=== PATIENT | female | born 1950 | race Caucasian/White ===

== ENCOUNTER 2017-02-02 11:31 | Observation (INO) ==
[2017-02-02] MEDS ORDERED: methylPREDNISolone 125 MG/2 ML VIAL IVP ONE (11:41)
[2017-02-02] MEDS ORDERED: Ipratropium/Albuterol Neb 3 ML IH ONE (11:41)
--- NOTE | 2017-02-02 11:49 | Emergency Department Note ---
Disposition Clinical Impression: Acute exacerbation of chronic obstructive airways disease Disposition: Admitted As Inpatient Condition: Good Referrals: Ángel Velazquez DO [Primary Care Provider] - Forms: ED Satisfaction Letter Time of Disposition: 12:51 SOB HPI - General Chief Complaint: ED Shortness of Breath/Dyspnea Stated Complaint: Shortness of breath Source: patient Limitations: no limitations - History of Present Illness Patient presents to the emergency department for evaluation of cough and shortness of breath. She states that she was exposed to her granddaughter who had a URI recently, she states over the past 2 days she has been having cough is productive of clear to yellow sputum with increasing wheeze and shortness of breath. She states that she has mild generalized rib and chest pain with cough only. Denies hemoptysis. Denies chest pain otherwise. Denies nausea vomiting or diaphoresis. She has had some subjective fever and chills. Denies lower extremity edema or calf discomfort. Denies history of DVT or PE. Denies lower extremity injury or recent prolonged immobilization. She denies recent antibiotic use or steroid use. - Related Data Home Medications Medication Instructions Recorded Confirmed Aspirin Enteric Coated [Aspirin EC] 81 mg PO DAILY 02/18/15 02/02/17 Cholecalciferol (Vitamin D3) 1,000 unit PO DAILY 02/18/15 02/02/17 [Vitamin D] Albuterol Sulfate [Albuterol 1 puff IH QID PRN 07/16/15 02/02/17 Inhaler] Previous Rx's Medication Instructions Recorded Hydrocodone/Acetaminophen [[place] 1 tab PO Q6H PRN #4 tab 02/18/15 5-325 Tablet] Albuterol Sulfate [Albuterol 2 puff IH QID 2 Days 01/03/16 Inhaler] Allergies Allergy/AdvReac Type Severity Reaction Status Date / Time No Known Allergies Allergy Verified 01/03/16 10:03 Constitutional: Reports: fever, chills Eyes: Denies: vision change ENT ED: Reports: congestion. Denies: throat pain, dysphagia Cardiovascular: Denies: palpitations, orthopnea, edema, syncope Respiratory: Reports: cough, dyspnea, wheezes, sputum production. Denies: hemoptysis Gastrointestinal: Denies: abdominal pain, nausea, vomiting, diarrhea Genitourinary: Denies: urgency, dysuria, frequency, hematuria Musculoskeletal: Denies: back pain, neck pain, joint swelling Integumentary: Denies: rash Neurological: Denies: headache, weakness, numbness, paresthesias Psychiatric: Denies: anxiety Hematological/Lymphatic: Denies: easy bleeding, easy bruising Allergic/Immunologic: Denies: facial swelling, urticaria, itchy eyes Past Medical History - Past Medical History Source: patient Medical history: Reports: COPD Surgical history: Reports: no surgical history Psychiatric history: Reports: no psych history - Social History Smoking Status: Current every day smoker Smokeless Tobacco Status: No Alcohol use: Reports: none Drug use: Reports: none Physical Exam - General Limitations: no limitations General appearance: alert, in no apparent distress - Head Head exam: atraumatic, normocephalic, normal inspection - Eye Eye exam: Present: normal appearance, PERRL, EOMI. Absent: scleral icterus - ENT ENT exam: normal oropharynx, mucous membranes moist, TM's normal bilaterally, other (Nasal congestion without sinus tenderness to percussion or facial swelling) - Respiratory Respiratory exam: Present: wheezes, accessory muscle use, prolonged expiratory phase. Absent: respiratory distress - Cardiovascular Cardiovascular exam: Present: regular rate, normal rhythm, normal heart sounds - Abdominal Exam Abdominal exam: Present: soft, Non-Tender, normal bowel sounds. Absent: tenderness, distention, guarding, rebound, rigidity - Extremities Exam Extremities exam: Present: normal inspection, full ROM. Absent: tenderness, pedal edema, calf tenderness - Back Exam Back exam: Absent: tenderness - Neurological Exam Neurological exam: Present: alert, oriented X3 - Psychiatric Psychiatric exam: Present: normal affect, normal mood - Skin Skin exam: Present: warm, dry, intact, normal color Course Course Narrative: Time 12:50 PM: Patient subjectively feels marginally improved though still with conversational dyspnea and complaint of shortness of breath with ongoing wheezing. There is no clinical evidence concerning for DVT or PE, symptoms are not consistent with a cardiac event. Patient will be admitted to the hospitalist service for ongoing evaluation and treatment. Vital Signs Temperature 98.2 F 02/02/17 11:34 Pulse Rate 79 02/02/17 11:34 Respiratory Rate 18 02/02/17 11:34 Blood Pressure 129/67 02/02/17 11:34 O2 Sat by Pulse Oximetry 86 02/02/17 11:34 Temperature 98.2 F 09/01/17 11:34 Pulse Rate 63 02/02/17 12:26 Respiratory Rate 17 02/02/17 12:26 Blood Pressure 120/49 02/02/17 12:26 O2 Sat by Pulse Oximetry 97 02/02/17 12:26 Oxygen Delivery Oxygen Delivery Nasal Cannula Shortness of Breath/Dyspnea - Lab Data Lab results reviewed: Yes I reviewed the patient's lab results. Result diagrams: 02/02/17 12:00 02/02/17 12:00 Lab Results 02/02/17 02/02/17 02/02/17 Range/Units 12:00 12:00 12:00 WBC 6.7 (4.3-11.1) K/mcL RBC 4.77 (3.82-4.97) M/mcL Hgb 15.6 H (11.5-15.4) g/dL Hct 45.7 H (35.3-44.9) % MCV 95.8 (83.0-100.0) fL MCH 32.7 (28.0-33.3) pg MCHC 34.1 (31.6-35.5) g/dL RDW 12.1 (11.5-14.5) % Plt Count 188 (140-400) K/mcL MPV 10.9 (9.4-12.4) fL Immature Gran % 0.3 (0-4) % Seg Neutrophils % 73.9 % Lymphocytes % 14.5 % Monocytes % 9.1 % Eosinophils % 1.3 % Basophils % 0.9 % Neutrophils # 4.9 (1.6-8.9) K/mcL Lymphocytes # 1.0 (0.6-4.6) K/mcL Monocytes # 0.6 (0.0-1.3) K/mcL Eosinophils # 0.1 (0.0-0.6) K/mcL Basophils # 0.1 (0.0-0.2) K/mcL PT 11.5 (9.4-12.1) Seconds INR 1.1 APTT 34.2 (26.0-36.0) Seconds Sodium 137 (136-145) mEq/L Potassium 4.2 (3.5-4.5) mEq/L Chloride 99 (98-109) mEq/L Carbon Dioxide 26 (19-29) mEq/L BUN 10 (7-20) mg/dL Creatinine 0.75 (0.57-1.11) mg/dL Est GFR ( Amer) > 60 (> 60) Est GFR (Non-Af Amer) > 60 (> 60) BUN/Creatinine Ratio 13 (6-26) Glucose 112 H (70-99) mg/dL Calculated Osmolality 284 (280-300) Calcium 10.1 (8.6-10.8) mg/dL Total Bilirubin 0.4 (0.2-1.2) mg/dL Direct Bilirubin 0.2 (0.0-0.5) mg/dL Indirect Bilirubin 0.2 (0.0-1.2) mg/dL AST 31 (5-34) Units/L ALT 25 (0-55) Units/L Alkaline Phosphatase 81 (38-126) Units/L Troponin I (0-0.03) ng/mL B-Natriuretic Peptide (0-100) pg/mL Serum Total Protein 7.7 (6.0-8.3) g/dL Albumin 4.0 (3.5-5.0) g/dL Globulin 3.7 H (2.4-3.5) g/dL Albumin/Globulin Ratio 1.1 (1.1-2.2) 02/02/17 02/02/17 Range/Units 12:00 12:00 WBC (4.3-11.1) K/mcL RBC (3.82-4.97) M/mcL Hgb (11.5-15.4) g/dL Hct (35.3-44.9) % MCV (83.0-100.0) fL MCH (28.0-33.3) pg MCHC (31.6-35.5) g/dL RDW (11.5-14.5) % Plt Count (140-400) K/mcL MPV (9.4-12.4) fL Immature Gran % (0-4) % Seg Neutrophils % % Lymphocytes % % Monocytes % % Eosinophils % % Basophils % % Neutrophils # (1.6-8.9) K/mcL Lymphocytes # (0.6-4.6) K/mcL Monocytes # (0.0-1.3) K/mcL Eosinophils # (0.0-0.6) K/mcL Basophils # (0.0-0.2) K/mcL PT (9.4-12.1) Seconds INR APTT (26.0-36.0) Seconds Sodium (136-145) mEq/L Potassium (3.5-4.5) mEq/L Chloride (98-109) mEq/L Carbon Dioxide (19-29) mEq/L BUN (7-20) mg/dL Creatinine (0.57-1.11) mg/dL Est GFR ( Amer) (> 60) Est GFR (Non-Af Amer) (> 60) BUN/Creatinine Ratio (6-26) Glucose (70-99) mg/dL Calculated Osmolality (280-300) Calcium (8.6-10.8) mg/dL Total Bilirubin (0.2-1.2) mg/dL Direct Bilirubin (0.0-0.5) mg/dL Indirect Bilirubin (0.0-1.2) mg/dL AST (5-34) Units/L ALT (0-55) Units/L Alkaline Phosphatase (38-126) Units/L Troponin I 0.02 (0-0.03) ng/mL B-Natriuretic Peptide 94 (0-100) pg/mL Serum Total Protein (6.0-8.3) g/dL Albumin (3.5-5.0) g/dL Globulin (2.4-3.5) g/dL Albumin/Globulin Ratio (1.1-2.2) ITS Impressions Chest X-Ray 02/02/17 11:41 IMPRESSION: COPD with no acute finding or interval change. D/ / Adarsh Portillo MD / Adarsh Portillo MD Interpreting Provider: Adarsh Portillo MD - Radiology Data Radiology results reviewed: Yes I reviewed the patient's radiology results. - EKG Data EKG attestation: Yes I reviewed and interpreted this EKG. EKG shows normal: Reports: sinus rhythm (Normal sinus rhythm or rate of 67. Nonspecific ST and T wave changes.)
[2017-02-02 12:08] LABS: Basophils # 0.1 K/mcL (0.0-0.2); Basophils % 0.9 %; Eosinophils # 0.1 K/mcL (0.0-0.6); Eosinophils % 1.3 %; Hematocrit 45.7 % (35.3-44.9); Hemoglobin 15.6 g/dL (11.5-15.4); Immature Granulocytes % 0.3 % (0-4); Lymphocytes % 14.5 %; Mean Corpuscular HGB Conc 34.1 g/dL (31.6-35.5); Mean Corpuscular Hemoglobin 32.7 pg (28.0-33.3); Mean Corpuscular Volume 95.8 fL (83.0-100.0); Mean Platelet Volume 10.9 fL (9.4-12.4); Monocytes # 0.6 K/mcL (0.0-1.3); Monocytes % 9.1 %; Neutrophils # 4.9 K/mcL (1.6-8.9); Platelet Count 188 K/mcL (140-400); Red Blood Count 4.77 M/mcL (3.82-4.97); Red Cell Distribution Width 12.1 % (11.5-14.5); Segmented Neutrophils % 73.9 %
[2017-02-02 12:13] LABS: INR 1.1; Prothrombin Time 11.5 Seconds (9.4-12.1)
[2017-02-02 12:16] LABS: Activated Partial Thrombo Time 34.2 Seconds (26.0-36.0)
[2017-02-02] MEDS ORDERED: Levofloxacin 750 MG/150 ML 750 MG/150 ML BAG IVPB ONE (12:18)
[2017-02-02 12:26] LABS: Alanine Aminotransferase 25 Units/L (0-55); Albumin/Globulin Ratio 1.1 (1.1-2.2); Alkaline Phosphatase 81 Units/L (38-126); Aspartate Amino Transferase 31 Units/L (5-34); BUN/Creatinine Ratio 13 (6-26); Bilirubin,Direct 0.2 mg/dL (0.0-0.5); Bilirubin,Indirect 0.2 mg/dL (0.0-1.2); Bilirubin,Total 0.4 mg/dL (0.2-1.2); Blood Urea Nitrogen 10 mg/dL (7-20); Calcium 10.1 mg/dL (8.6-10.8); Carbon Dioxide 26 mEq/L (19-29); Chloride 99 mEq/L (98-109); Globulin 3.7 g/dL (2.4-3.5); Glucose 112 mg/dL (70-99); Osmolality,Calculated 284 (280-300); Potassium 4.2 mEq/L (3.5-4.5); Sodium 137 mEq/L (136-145); Total Protein 7.7 g/dL (6.0-8.3); eGFR For African Americans > 60 (> 60); eGFR For Non-African Americans > 60 (> 60)
[2017-02-02] MEDS ORDERED: Ketorolac 30 MG/ML VIAL IVP ONE (12:48)
[2017-02-02] MEDS ORDERED: Naloxone 0.4 MG/ML INJ IVP PRN (12:51)
--- NOTE | 2017-02-02 14:41 | Internal Med History&Physical ---
Date of Encounter: 02/02/17 Time of Encounter: 14:15 Assessment and Plan (1) Acute exacerbation of chronic obstructive airways disease Current visit: Yes Status: Acute She was given IV Levaquin in emergency room. She will continue on oral Levaquin with lactobacillus. I will also start Symbicort and continue with albuterol nebs when necessary. Room air oximetry will be checked in a.m. to see if home oxygen as needed. (2) Weight loss Current visit: Yes Status: Acute We will check TSH in a.m. and order CT of chest abdomen and pelvis since she has had approximately 15 pound weight loss unintentional. Internal Medicine - H&P: HPI Chief complaint: Dyspnea Admitted From: Home Plans for Post Hospital Care: Home History of present illness: Ms. Walls is a 66 year old female who came to emergency room stating she had increasing dyspnea with cough for the preceding 3 days. The cough was productive of clear sputum. She also complains of headache and sore throat. When she was not improving she came to emergency room and was evaluated. She was felt to have exacerbation of COPD and was admitted to [facility] floor for ongoing care needs. She has been diagnosed with COPD but does not recall when PFTs were done most recently. She has smoked since age 18 up to 1-1/2 packs per day. She does not use home oxygen. Past Med Surg Social Fam HX - Past Medical History Medical history: COPD Psychiatric history: no psych history - Past Surgical History Surgical History: no surgical history - Social History Smoking Status: Current every day smoker Packs per day: 1.5 Smokeless Tobacco Status: No Alcohol use: none Drug use: none - Family History Mother Adopted: No Living Status: Internal Medicine - H&P: Meds Aspirin Enteric Coated [Aspirin EC] 81 mg PO DAILY 02/18/15 [History] Cholecalciferol (Vitamin D3) [Vitamin D] 1,000 unit PO DAILY 02/18/15 [History] Hydrocodone/Acetaminophen [[place] 5-325 Tablet] 1 tab PO Q6H PRN #4 tab 02/18/15 [Rx] Albuterol Sulfate [Albuterol Inhaler] 1 puff IH QID PRN 07/16/15 [History] Albuterol Sulfate [Albuterol Inhaler] 2 puff IH QID 2 Days 01/03/16 [Rx] 3 Allergy/AdvReac Type Severity Reaction Status Date / Time No Known Allergies Allergy Verified 01/03/16 10:03 All Systems PM: A 10-system review of systems was performed and is negative for pertinent findings except as documented above in the HPI. Review of systems: Gen.: She states her weight has decreased from approximately 110 pounds one year ago to present weight of 94 pounds, unintentionally Cardiovascular: She denies hypertension DC heart failure angina DVT or pulmonary embolism. She states she had cerebral aneurysm intervention in 1999. She has had peripheral bypass surgery on her left leg but does not know details. Respiratory: As per history of present illness GI: She has been diagnosed with fatty liver disease. She denies other disorders of her liver gallbladder or exocrine pancreas : She denies hematuria dysuria or kidney stones Neurologic: She denies large distribution strokes or seizures Endocrine: She denies diabetes thyroid disease or hyperlipidemia Hematology/oncology: She states she had cervical cancer approximately 35 years ago and had curative hysterectomy. She denies other internal malignancies or blood disorders Psychiatric: She has feelings of depression and anxiety at times but does not take medication [place] skeletal: She has DJD but denies gout or other bone joint or muscle disorders. - Constitutional Vitals: Temp Pulse Resp BP Pulse Ox 98.1 F 69 18 144/72 94 02/02/17 13:55 02/02/17 13:55 02/02/17 13:55 02/02/17 13:55 02/02/17 13:55 Exam: Gen.: She is a well-developed well-nourished female appears in no acute distress at present time HEENT: Head is atraumatic and normocephalic. Eyes: EOMI. There is no scleral icterus. Mouth: Mucosa is moist. Neck: Supple and nontender. There is no thyromegaly or adenopathy noted. Heart: Regular without murmurs gallops or ectopics Lungs: No wheezes or crackles are heard. She has diminished breath sounds diffusely. Abdomen: Soft and nontender. No masses or guarding are noted. Extremities: There is no cyanosis edema or clubbing noted. Dorsalis pedis and posterior tibial pulses are trace palpable bilaterally. Neurologic: Mental status: She is talkative and a good historian. Cranial nerves: Smile is symmetric. Forehead wrinkles bilaterally. Tongue protrudes midline. EOMI. Motor: There is no pronator drift. Cerebellar: Finger to nose is intact bilaterally. Skin: Warm and dry Internal Med - H&P Results - Labs CBC & Chem 7: 02/02/17 12:00 02/02/17 12:00
[2017-02-02] MEDS: ALPRAZolam 0.5 MG TABLET PO PRN (16:23)
[2017-02-02] MEDS: *HR* HYDROcodone/Acet 5/325 mg TABLET PO PRN (16:23)
[2017-02-02] MEDS: Ondansetron ODT 4 MG TAB.RAPDIS SL PRN (16:25)
[2017-02-02] MEDS: Budesonide/Formoterol 160/4.5 MDI IH SCH ×2 (16:30→22:15)
[2017-02-02] MEDS: Ondansetron 4 MG/2 ML VIAL IVP PRN (16:54)
[2017-02-02] MEDS: Lactobacillus 1 EACH CAP.SPRINK PO SCH (19:37)
[2017-02-02] MEDS: Benzonatate 100 MG CAPSULE PO PRN (21:59)
[2017-02-02] MEDS: Albuterol 2.5 MG/3 ML NEBULIZER IH PRN (22:15)
[2017-02-03 08:02] LABS: Basophils % 0.1 %; Eosinophils % 0.1 %; Hematocrit 43.4 % (35.3-44.9); Hemoglobin 14.9 g/dL (11.5-15.4); Immature Granulocytes % 0.3 % (0-4); Lymphocytes # 0.6 K/mcL (0.6-4.6); Lymphocytes % 8.6 %; Mean Corpuscular HGB Conc 34.3 g/dL (31.6-35.5); Mean Corpuscular Hemoglobin 32.7 pg (28.0-33.3); Mean Corpuscular Volume 95.4 fL (83.0-100.0); Mean Platelet Volume 10.9 fL (9.4-12.4); Monocytes # 0.7 K/mcL (0.0-1.3); Monocytes % 9.1 %; Platelet Count 177 K/mcL (140-400); Red Blood Count 4.55 M/mcL (3.82-4.97); Red Cell Distribution Width 11.9 % (11.5-14.5); Segmented Neutrophils % 81.8 %
[2017-02-03 08:10] LABS: BUN/Creatinine Ratio 21 (6-26); Blood Urea Nitrogen 15 mg/dL (7-20); Calcium 9.7 mg/dL (8.6-10.8); Carbon Dioxide 24 mEq/L (19-29); Glucose 115 mg/dL (70-99); eGFR For African Americans > 60 (> 60); eGFR For Non-African Americans > 60 (> 60)
[2017-02-03] MEDS: Albuterol 2.5 MG/3 ML NEBULIZER IH PRN (08:38)
[2017-02-03] MEDS: Budesonide/Formoterol 160/4.5 MDI IH SCH ×3 (08:43→22:35)
[2017-02-03] MEDS: Lactobacillus 1 EACH CAP.SPRINK PO SCH ×2 (08:56→20:27)
[2017-02-03] MEDS: *HR* HYDROcodone/Acet 5/325 mg TABLET PO PRN ×3 (08:56→18:38)
[2017-02-03] MEDS: levoFLOXacin 250 MG TABLET PO SCH (08:56)
[2017-02-03] MEDS: ALPRAZolam 0.5 MG TABLET PO PRN ×3 (08:57→20:27)
[2017-02-03] MEDS: Aspirin 81 MG TAB.CHEW PO SCH (08:57)
[2017-02-03] MEDS: Benzonatate 100 MG CAPSULE PO PRN ×2 (08:57→18:38)
[2017-02-03] MEDS: Nicotine 21 MG PATCH.TD24 TD SCH (08:59)
[2017-02-03 10:04] LABS: Chloride 101 mEq/L (98-109); Osmolality,Calculated 282 (280-300); Potassium 4.8 mEq/L (3.5-4.5); Sodium 135 mEq/L (136-145)
--- NOTE | 2017-02-03 15:54 | Internal Med Progress Note ---
Date of Encounter: 02/03/17 Time of Encounter: 15:50 - Assessment and plan (1) COPD (chronic obstructive pulmonary disease) Current Visit: No Status: Chronic Assessment and plan: Only a little less short of breath continue Symbicort neb treatments oxygen and follow-up labs Qualifiers: COPD type: unspecified COPD Qualified Code(s): J44.9 - Chronic obstructive pulmonary disease, unspecified (2) Bronchitis, acute Current Visit: Yes Status: Acute Assessment and plan: We will continue the Levaquin follow up a CBC with differential in the morning Qualifiers: Bronchitis organism: unspecified organism Qualified Code(s): J20.9 - Acute bronchitis, unspecified (3) Hypothyroidism Current Visit: Yes Status: Acute Assessment and plan: We will follow-up at thyroid cascade. She may need to go to a specialist for further workup Qualifiers: Hypothyroidism type: unspecified Qualified Code(s): E03.9 - Hypothyroidism , unspecified (4) Weight loss Current Visit: Yes Status: Acute Assessment and plan: TSH was low to be one reason CT scan did not show cancer. She does not eat much she is not sure how many calories she takes. Bursa and usually needs about 1200 kamlesh to maintain body weight (5) Hyponatremia Current Visit: Yes Status: Acute Assessment and plan: could be related to dilution with IV fluids will follow up BMP (6) Hyperkalemia Current Visit: Yes Status: Acute Assessment and plan: Can be related to dilution with IV fluids AND BMP in morning (7) IFG (impaired fasting glucose) Current Visit: Yes Status: Acute Assessment and plan: I related to the steroid effect will get a hemoglobin A1c (8) Sigmoid diverticulosis Current Visit: Yes Status: Chronic Assessment and plan: With diverticulosis is and if she can avoid constipation would help avoid diverticulitis or inflammation and infection of the area - Time Spent With Patient 25 - 35 minutes - Subjective Interval history: 66-year-old female presented to emergency room with shortness of breath and cough she was admitted to Dr. Wasserman service today methyl prednisone and Levaquin IV. Dr. Rocha switched her to Symbicort continue neb treatments changed to Levaquin 250 mg by mouth daily. He ordered a TSH because of her weight loss which showed decreased TSH level which is consistent with hyperthyroidism reorder CT scan because the weight loss of the abdomen and pelvis which showed moderate centrilobar emphysema, mild bronchial wall thickening of the right middle lobe, right lower lobe, and left lower lobe. Evidence of poor granulomatous disease with calcifications of the mediastinal lymph node. Also showed sigmoid diverticulitis. Her blood sugar remains high but she is on steroid, her sodium came down, her potassium went up slightly. She feels just slightly better today but is still on oxygen. Does not wear oxygen at home. She reports no chest pain questions answered concerns addressed lab results and CT results were discussed with patient - Constitutional Vitals: Temp Pulse Resp BP Pulse Ox 98.1 F 52 16 100/60 97 02/03/17 14:30 02/03/17 14:30 02/03/17 14:30 02/03/17 14:30 02/03/17 14:30 Exam: General: Alert and oriented, no acute distress Lungs: Clear to auscultation bilaterally without wheezing or crackles Heart: Regular rate and rythms without murmer or rubs Abdomen: Soft, nontender, Extremities: no edema, redness Internal Medicine: Result - Labs CBC & Chem 7: 02/03/17 07:34 02/03/17 07:34 Labs: Short CBC 02/03/17 Range/Units 07:34 WBC 7.4 (4.3-11.1) K/mcL Hgb 14.9 (11.5-15.4) g/dL Hct 43.4 (35.3-44.9) % Plt Count 177 (140-400) K/mcL Neutrophils # 6.0 (1.6-8.9) K/mcL BMP 02/03/17 07:34 Sodium 135 L Potassium 4.8 H Chloride 101 Carbon Dioxide 24 BUN 15 Creatinine 0.73 Glucose 115 H Calcium 9.7 Cardiac Enzymes 02/02/17 02/03/17 Range/Units 18:02 00:01 Troponin I 0.00 0.00 (0-0.03) ng/mL - ABG Interpretation ABG results: PT/INR, D-dimer PT 11.5 Seconds (9.4-12.1) 02/02/17 12:00 - Impressions Impressions Chest CT 02/02/17 14:34 IMPRESSION: 1. No acute finding in the abdomen or pelvis. 2. Moderate centrilobular emphysema. 3. Mild bronchial wall thickening of the right middle lobe, right lower lobe, and left lower lobe. Please correlate with clinical symptoms of bronchitis. 4. Evidence of prior granulomatous disease with calcified mediastinal lymph nodes, hilar lymph nodes, and calcified granulomas in the spleen. 5. Sigmoid diverticulosis. No evidence of diverticulitis. D/ / 02/02/2017 15:49:54 Marvin Olmedo MD / george Interpreting Provider: Marvin Olmedo MD Abdomen/Pelvis CT 02/02/17 14:39 IMPRESSION: 1. No acute finding in the abdomen or pelvis. 2. Moderate centrilobular emphysema. 3. Mild bronchial wall thickening of the right middle lobe, right lower lobe, and left lower lobe. Please correlate with clinical symptoms of bronchitis. 4. Evidence of prior granulomatous disease with calcified mediastinal lymph nodes, hilar lymph nodes, and calcified granulomas in the spleen. 5. Sigmoid diverticulosis. No evidence of diverticulitis. D/ : / 02/02/2017 15:49:54 Marvin Olmedo MD / george Interpreting Provider: Marvin Olmedo MD Consult Discharge Plan - Plan Referrals: Ángel Velazquez DO [Primary Care Provider] - 1 week
[2017-02-03] MEDS: Ondansetron 4 MG/2 ML VIAL IVP PRN (18:47)
[2017-02-04] MEDS: *HR* HYDROcodone/Acet 5/325 mg TABLET PO PRN ×2 (05:43→11:41)
[2017-02-04] MEDS: Ondansetron ODT 4 MG TAB.RAPDIS SL PRN ×2 (05:43→21:24)
[2017-02-04] MEDS: Albuterol 2.5 MG/3 ML NEBULIZER IH PRN (05:45)
[2017-02-04] MEDS: Benzonatate 100 MG CAPSULE PO PRN ×2 (05:48→21:16)
[2017-02-04] MEDS: Ondansetron 4 MG/2 ML VIAL IVP PRN ×3 (05:48→21:28)
[2017-02-04 06:14] LABS: Basophils # 0.1 K/mcL (0.0-0.2); Basophils % 0.7 %; Eosinophils # 0.3 K/mcL (0.0-0.6); Eosinophils % 4.1 %; Hematocrit 41.8 % (35.3-44.9); Immature Granulocytes % 0.3 % (0-4); Lymphocytes # 1.8 K/mcL (0.6-4.6); Lymphocytes % 26.3 %; Mean Corpuscular HGB Conc 33.5 g/dL (31.6-35.5); Mean Corpuscular Hemoglobin 32.6 pg (28.0-33.3); Mean Corpuscular Volume 97.4 fL (83.0-100.0); Mean Platelet Volume 11.6 fL (9.4-12.4); Monocytes # 0.5 K/mcL (0.0-1.3); Monocytes % 7.5 %; Neutrophils # 4.2 K/mcL (1.6-8.9); Platelet Count 173 K/mcL (140-400); Red Blood Count 4.29 M/mcL (3.82-4.97); Red Cell Distribution Width 12.3 % (11.5-14.5); Segmented Neutrophils % 61.1 %
[2017-02-04 06:28] LABS: BUN/Creatinine Ratio 22 (6-26); Blood Urea Nitrogen 16 mg/dL (7-20); Calcium 9.3 mg/dL (8.6-10.8); Carbon Dioxide 27 mEq/L (19-29); Chloride 103 mEq/L (98-109); Glucose 83 mg/dL (70-99); Osmolality,Calculated 288 (280-300); Potassium 4.4 mEq/L (3.5-4.5); Sodium 139 mEq/L (136-145); eGFR For African Americans > 60 (> 60); eGFR For Non-African Americans > 60 (> 60)
[2017-02-04 06:52] LABS: Thyroid Stimulating Hormone 1.174 mcIU/mL (0.350-4.840)
[2017-02-04] MEDS: levoFLOXacin 250 MG TABLET PO SCH (09:08)
[2017-02-04] MEDS: Aspirin 81 MG TAB.CHEW PO SCH (09:08)
[2017-02-04] MEDS: Lactobacillus 1 EACH CAP.SPRINK PO SCH ×2 (09:09→21:16)
[2017-02-04] MEDS: ALPRAZolam 0.5 MG TABLET PO PRN ×2 (09:09→18:03)
[2017-02-04] MEDS: Nicotine 21 MG PATCH.TD24 TD SCH (09:09)
[2017-02-04] MEDS: Budesonide/Formoterol 160/4.5 MDI IH SCH ×2 (09:14→21:12)
--- NOTE | 2017-02-04 14:35 | Internal Med Progress Note ---
Date of Encounter: 02/04/17 Time of Encounter: 14:25 - Assessment and plan (1) Acute exacerbation of chronic obstructive airways disease Current Visit: Yes Status: Acute Assessment and plan: February 04. Continue Levaquin, lactobacillus, Symbicort and neb treatments when necessary. Will add Robitussin-DM (2) Weight loss Current Visit: Yes Status: Acute Assessment and plan: TSH was low to be one reason CT scan did not show cancer. She does not eat much she is not sure how many calories she takes. Bursa and usually needs about 1200 kamlesh to maintain body weight February 04. CT scan showed no evidence of malignancy. TSH has returned normal on recheck today. - Subjective Interval history: February 04. She complains of a headache. She does not feel she has improved significantly in her breathing. - Constitutional Vitals: Temp Pulse Resp BP Pulse Ox 99.3 F 61 21 85/47 92 02/04/17 10:45 02/04/17 10:45 02/04/17 10:45 02/04/17 10:45 02/04/17 12:51 Exam: She is resting comfortably in bed. Lungs show diminished breath sounds but no inspiratory crackles or expiratory wheezing. Reviewed her medications and lab results. Internal Medicine: Result - Labs CBC & Chem 7: 02/04/17 05:10 02/04/17 05:10 Labs: Short CBC 02/04/17 Range/Units 05:10 WBC 6.8 (4.3-11.1) K/mcL Hgb 14.0 (11.5-15.4) g/dL Hct 41.8 (35.3-44.9) % Plt Count 173 (140-400) K/mcL Neutrophils # 4.2 (1.6-8.9) K/mcL BMP 02/04/17 05:10 Sodium 139 Potassium 4.4 Chloride 103 Carbon Dioxide 27 BUN 16 Creatinine 0.73 Glucose 83 Calcium 9.3 - ABG Interpretation ABG results: PT/INR, D-dimer PT 11.5 Seconds (9.4-12.1) 02/02/17 12:00 - Impressions Impressions Chest CT 02/02/17 14:34 IMPRESSION: 1. No acute finding in the abdomen or pelvis. 2. Moderate centrilobular emphysema. 3. Mild bronchial wall thickening of the right middle lobe, right lower lobe, and left lower lobe. Please correlate with clinical symptoms of bronchitis. 4. Evidence of prior granulomatous disease with calcified mediastinal lymph nodes, hilar lymph nodes, and calcified granulomas in the spleen. 5. Sigmoid diverticulosis. No evidence of diverticulitis. D/ / 02/02/2017 15:49:54 Marvin Olmedo MD / george Interpreting Provider: Marvin Olmedo MD Abdomen/Pelvis CT 02/02/17 14:39 IMPRESSION: 1. No acute finding in the abdomen or pelvis. 2. Moderate centrilobular emphysema. 3. Mild bronchial wall thickening of the right middle lobe, right lower lobe, and left lower lobe. Please correlate with clinical symptoms of bronchitis. 4. Evidence of prior granulomatous disease with calcified mediastinal lymph nodes, hilar lymph nodes, and calcified granulomas in the spleen. 5. Sigmoid diverticulosis. No evidence of diverticulitis. D/ / 02/02/2017 15:49:54 Marvin Olmedo MD / george Interpreting Provider: Marvin Olmedo MD Consult Discharge Plan - Plan Referrals: Ángel Velazquez DO [Primary Care Provider] - 1 week
[2017-02-04] MEDS: *HR* OxyCODONE/APAP 5/325 TABLET PO PRN ×2 (15:22→21:16)
[2017-02-04 17:20] LABS: Hemoglobin A1C 5.7 %
[2017-02-05 06:22] VITALS: BP 100/55
[2017-02-05] MEDS: *HR* OxyCODONE/APAP 5/325 TABLET PO PRN ×2 (06:54→11:22)
[2017-02-05] MEDS: Ondansetron 4 MG/2 ML VIAL IVP PRN ×2 (06:55→13:20)
--- NOTE | 2017-02-05 10:08 | Discharge Summary ---
Date of Encounter: 02/05/17 Time of Encounter: 09:55 - Discharge Diagnosis (1) Acute exacerbation of chronic obstructive airways disease Priority: Primary Status: Acute (2) Weight loss Priority: Secondary Status: Acute - Discharge Medications Prescriptions: Budesonide/Formoterol 160/4.5 [Symbicort 160/4.5] 2 puff IH BIDR #1 hfa.aer.ad Lactobacillus [Culturelle] 1 each PO BID #6 cap.sprink levoFLOXacin [Levaquin] 500 mg PO DAILY #3 tablet Home Medications: Aspirin Enteric Coated [Aspirin EC] 81 mg PO DAILY 02/18/15 [History] Cholecalciferol (Vitamin D3) [Vitamin D] 1,000 unit PO DAILY 02/18/15 [History] Hydrocodone/Acetaminophen [[place] 5-325 Tablet] 1 tab PO Q6H PRN #4 tab 02/18/15 [Rx] Albuterol Sulfate [Albuterol Inhaler] 1 puff IH QID PRN 07/16/15 [History] Albuterol Sulfate [Albuterol Inhaler] 2 puff IH QID 2 Days 01/03/16 [Rx] Budesonide/Formoterol 160/4.5 [Symbicort 160/4.5] 2 puff IH BIDR #1 hfa.aer.ad 02/05/17 [Rx] Lactobacillus [Culturelle] 1 each PO BID #6 cap.sprink 02/05/17 [Rx] levoFLOXacin [Levaquin] 500 mg PO DAILY #3 tablet 02/05/17 [Rx] Allergies/Adverse Reactions: 3 Allergy/AdvReac Type Severity Reaction Status Date / Time No Known Allergies Allergy Verified 01/03/16 10:03 Procedures/tests Complete & Pending: Procedures Performed prior 72 hours Category Date Time Status CT abd pelvis wo no iv no oral [CT] Routine Cat Scan 02/02/17 14:[address] chest wo con [CT] Routine Cat Scan 02/02/17 14:34 Completed Date of admission: 02/02/17 13:17 Primary care physician: Ángel Velazquez DO - Patient Status Disposition: Home, Self-Care Condition: Good Overall status at discharge: patient is progressing back to baseline - Discharge Instructions Follow Up With: Ángel Velazquez DO [Primary Care Provider] - 1 week - Diet and Activity Activity: resume usual activities as tolerated Diet: advance to your usual diet Hospital course: Ms. Walls is a 66 year old female who came to emergency room stating she had increasing dyspnea with cough for the preceding 3 days. The cough was productive of clear sputum. She also complains of headache and sore throat. When she was not improving she came to emergency room and was evaluated. She was felt to have exacerbation of COPD and was admitted to [facility] floor for ongoing care needs. Initial orders were written by the emergency room physician. I saw her on February 02 and performed the history and physical. She was started on Levaquin and lactobacillus. I added Symbicort and continued albuterol nebs when necessary. Her dyspnea gradually improved. She had hypoxemia on room air on the day of discharge with oxygen saturation of 84% at rest. She will be prescribed oxygen at 2 L/m by nasal cannula 25/12 with portable gas and concentrator for COPD with hypoxemia. TSH and CT of chest abdomen pelvis were ordered to further evaluate her reported weight loss. TSH returned slightly suppressed at 0.257 on February 03. Repeat check the following day returned normal at 1.174. CT scans showed moderate centrilobular emphysema with bronchial wall thickening of the right middle lobe and right lower lobe and left lower lobe consistent with bronchitis. I encouraged her strongly to discontinue smoking. Hemoglobin A1c returned satisfactory at 5.7%. On February 05 I felt she was stable for discharge home. She will follow with her PCP Dr. Velazquez within 1 week. I strongly encouraged her to discontinue smoking and wear oxygen as prescribed. - Time Spent with Patient Total time spent providing and/or coordinating discharge services: - Constitutional Vitals: Temp Pulse Resp BP Pulse Ox 97.8 F 77 16 100/55 95 02/05/17 06:19 02/05/17 06:19 02/05/17 06:19 02/05/17 06:19 02/05/17 06:19
[2017-02-05] MEDS: Budesonide/Formoterol 160/4.5 MDI IH SCH (10:12)
[2017-02-05] MEDS: Nicotine 21 MG PATCH.TD24 TD SCH (10:18)
[2017-02-05] MEDS: Lactobacillus 1 EACH CAP.SPRINK PO SCH (10:18)
[2017-02-05] MEDS: levoFLOXacin 250 MG TABLET PO SCH (10:18)
[2017-02-05] MEDS: Aspirin 81 MG TAB.CHEW PO SCH (10:18)
[2017-02-05] MEDS: ALPRAZolam 0.5 MG TABLET PO PRN (13:21)
--- NOTE | 2017-02-06 07:56 | Electrocardiograph Report ---
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
== END 2017-02-05 16:00 | disposition home or self-care (01) ==
LOC: EMEROOPIK 11:31 → INPPIK 11:31
PROVIDERS: ADMIT Internal Medicine; ATTEND Internal Medicine

== ENCOUNTER 2017-06-02 12:08 | Observation (INO) ==
[2017-06-02] MEDS ORDERED: cefTRIAXone 1,000 MG in Water for inj. (sterile) 20 ML 10 ML IVP ONE (12:09)
[2017-06-02] MEDS ORDERED: Ipratropium/Albuterol Neb 3 ML IH ONE (12:09)
[2017-06-02] MEDS ORDERED: 0.9 % Sodium Chloride 1,000 ML IVC ONE (12:09)
[2017-06-02] MEDS ORDERED: Azithromycin 500 MG in D5% in Water 250 ML IVPB ONE (12:09)
[2017-06-02] MEDS ORDERED: methylPREDNISolone 125 MG/2 ML VIAL IVP ONE (12:09)
--- NOTE | 2017-06-02 12:14 | Emergency Department Note ---
Disposition Clinical Impression: Acute exacerbation of chronic obstructive airways disease Disposition: Admitted As Inpatient Condition: Fair Referrals: Ángel Velazquez DO [Primary Care Provider] - Forms: ED Satisfaction Letter SOB HPI - General Chief Complaint: ED Shortness of Breath/Dyspnea Stated Complaint: I can't breathe Time Seen by Provider: 06/02/17 12:09 Source: patient, family Mode of arrival: private vehicle Limitations: physical limitation Nursing Notes Reviewed: Yes Vital Signs Reviewed: Yes - History of Present Illness Patient presents stating it feels like she has "the flu". She has been feeling poorly for 3 days with increased shortness of breath and a cough productive of green phlegm. She had generalized malaise, fevers and chills. She states she has a headache and chest pain with coughing but no other headache or chest pain. She has diffuse muscle and joint aches. She reports nausea without vomiting. She denies abdominal pain or diarrhea. She denies any ill exposures , change her medicines and recent antibiotic or foodborne illness or concerns. She has smoked it has a history of COPD. She states she has had similar symptoms in the past but not quite this bad. She is on 2-1/2 L of oxygen at home but arrives without oxygen and is saturating at 79%. Pt Subjective Complaint: shortness of breath, cough Onset (ago): day(s) (3) Context: recent illness Severity: moderate, severe Consistency/Duration: gradually worsening Improves with: oxygen, rest Worsens with: exertion, coughing Known history of: COPD Associated symptoms: Reports: fever, cough, wheezing, sputum production. Denies : chest pain, pain with inspiration, orthopnea, lower extremity pain, palpitations, hemoptysis, diaphoresis, nausea/vomiting, syncope, abdominal pain , rash Treatment prior to arrival: oxygen, bronchodilator Cough present: Yes Cough Description: Voluntary, Productive, Moist Cough Frequency: Intermittent Sputum production: Yes Sputum Amount: Moderate Sputum Color: Green - Related Data Home oxygen amount: 2 liters Home Medications Medication Instructions Recorded Confirmed Aspirin Enteric Coated [Aspirin EC] 81 mg PO DAILY 02/18/15 06/02/17 Cholecalciferol (Vitamin D3) 1,000 unit PO DAILY 02/18/15 06/02/17 [Vitamin D] Albuterol Sulfate [Albuterol 1 puff IH QID PRN 07/16/15 06/02/17 Inhaler] Previous Rx's Medication Instructions Recorded Hydrocodone/Acetaminophen [[place] 1 tab PO Q6H PRN #4 tab 02/18/15 5-325 Tablet] Albuterol Sulfate [Albuterol 2 puff IH QID 2 Days inhaler 01/03/16 Inhaler] Allergies Allergy/AdvReac Type Severity Reaction Status Date / Time No Known Allergies Allergy Verified 01/03/16 10:03 All systems ED: reviewed and negative except as stated. Past Medical History - Past Medical History Attestation: Yes The following information was validated with the patient. Source: patient, old records reviewed, obtained from family, nursing notes reviewed Medical history: Reports: COPD Surgical history: Reports: no surgical history Psychiatric history: Reports: no psych history - Social History Smoking Status: Current every day smoker Smokeless Tobacco Status: No Alcohol use: Reports: none Drug use: Reports: none Physical Exam - General Limitations: physical limitation General appearance: alert, in distress - Head Head exam: atraumatic, normocephalic, normal inspection - Eye Eye exam: Present: normal appearance, PERRL, EOMI. Absent: conjunctival injection - ENT ENT exam: normal exam, normal oropharynx, mucous membranes moist - Neck Neck exam: Present: normal inspection, full ROM, trachea midline - Chest Chest inspection: Present: normal inspection, symmetric chest wall rise. Absent : tenderness - Respiratory Respiratory exam: Present: respiratory distress, wheezes, prolonged expiratory phase. Absent: stridor, accessory muscle use - Cardiovascular Cardiovascular exam: Present: regular rate, normal rhythm, normal heart sounds. Absent: tachycardia - Abdominal Exam Abdominal exam: Present: soft, Non-Tender, normal bowel sounds. Absent: tenderness, distention, guarding, rebound, rigidity - Extremities Exam Extremities exam: Present: normal inspection, full ROM, normal capillary refill. Absent: tenderness, pedal edema, calf tenderness - Expanded Lower Extremity Exam Neurovascular/Tendon exam: Present: normal capillary refill. Absent: motor deficit, sensory deficit, tendon deficit Gait: not tested/not observed - Back Exam Back exam: Present: normal inspection, full ROM. Absent: tenderness, vertebral tenderness - Neurological Exam Neurological exam: Present: alert, oriented X3 - Psychiatric Psychiatric exam: Present: normal affect, normal mood - Skin Skin exam: Present: warm, dry, intact, pallor. Absent: cyanosis, diaphoresis Course Course Narrative: Care is discussed with the patient, family and Dr. Wasserman. She is brought in for continued respiratory treatment for COPD exacerbation. Verbal orders are obtained for observation. Vital Signs Temperature 98.5 F 06/02/17 12:11 Pulse Rate 93 06/02/17 12:11 Respiratory Rate 24 06/02/17 12:11 Blood Pressure 144/32 06/02/17 12:11 O2 Sat by Pulse Oximetry 79 06/02/17 12:11 Temperature 98.5 F 06/02/17 12:11 Pulse Rate 80 06/02/17 12:59 Respiratory Rate 22 06/02/17 12:59 Blood Pressure 96/57 06/02/17 12:59 O2 Sat by Pulse Oximetry 95 06/02/17 12:59 Oxygen Delivery Oxygen Delivery Nasal Cannula Shortness of Breath/Dyspnea - Differential Diagnosis Likely: acute exacerbation of chronic obstructive airways disease, congestive heart failure, pneumonia, asthma with exacerbation - Lab Data Lab results reviewed: Yes I reviewed the patient's lab results. Result diagrams: 06/02/17 12:30 06/02/17 12:30 Lab Results 06/02/17 06/02/17 06/02/17 Range/Units 12:30 12:30 12:30 WBC 7.9 (4.3-11.1) K/mcL RBC 4.29 (3.82-4.97) M/mcL Hgb 14.0 (11.5-15.4) g/dL Hct 40.9 (35.3-44.9) % MCV 95.3 (83.0-100.0) fL MCH 32.6 (28.0-33.3) pg MCHC 34.2 (31.6-35.5) g/dL RDW 11.9 (11.5-14.5) % Plt Count 206 (140-400) K/mcL MPV 10.7 (9.4-12.4) fL Seg Neutrophils % 70.0 % Band Neutrophils % 8.0 H (0-4) % Lymphocytes % 4.0 % Monocytes % 14.0 % Eosinophils % 4.0 % Neutrophils # 6.2 (1.6-8.9) K/mcL Lymphocytes # 0.3 L (0.6-4.6) K/mcL Monocytes # 1.1 (0.0-1.3) K/mcL Eosinophils # 0.3 (0.0-0.6) K/mcL Toxic Vacuolation Present A (Not Present) Platelet Estimate Normal (Normal) PT 12.7 H (9.4-12.1) Seconds INR 1.2 APTT 28.9 (26.0-36.0) Seconds Sample Site ABG pH (7.32-7.45) pH Units ABG pCO2 (35-45) mmHg ABG pO2 (85-104) mmHg ABG HCO3 (21-27) mEq/L ABG Total CO2 (20-26) mEq/L ABG O2 Saturation (95-98) % ABG Base Excess (-2 to 3) mEq/L Jack Test O2 Delivery Device Inspired O2 (1-15=lpm [id number]=%) Sodium 135 L (136-145) mEq/L Potassium 4.3 (3.5-4.5) mEq/L Chloride 97 L (98-109) mEq/L Carbon Dioxide 25 (19-29) mEq/L BUN 18 (7-20) mg/dL Creatinine 0.81 (0.57-1.11) mg/dL Est GFR ( Amer) > 60 (> 60) Est GFR (Non-Af Amer) > 60 (> 60) BUN/Creatinine Ratio 22 (6-26) Glucose 126 H (70-99) mg/dL Calculated Osmolality 283 (280-300) Lactic Acid (0.5-2.2) mmol/L Calcium 10.1 (8.6-10.8) mg/dL Troponin I (0-0.03) ng/mL B-Natriuretic Peptide (0-100) pg/mL 06/02/17 06/02/17 06/02/17 Range/Units 12:30 12:30 12:30 WBC (4.3-11.1) K/mcL RBC (3.82-4.97) M/mcL Hgb (11.5-15.4) g/dL Hct (35.3-44.9) % MCV (83.0-100.0) fL MCH (28.0-33.3) pg MCHC (31.6-35.5) g/dL RDW (11.5-14.5) % Plt Count (140-400) K/mcL MPV (9.4-12.4) fL Seg Neutrophils % % Band Neutrophils % (0-4) % Lymphocytes % % Monocytes % % Eosinophils % % Neutrophils # (1.6-8.9) K/mcL Lymphocytes # (0.6-4.6) K/mcL Monocytes # (0.0-1.3) K/mcL Eosinophils # (0.0-0.6) K/mcL Toxic Vacuolation (Not Present) Platelet Estimate (Normal) PT (9.4-12.1) Seconds INR APTT (26.0-36.0) Seconds Sample Site ABG pH (7.32-7.45) pH Units ABG pCO2 (35-45) mmHg ABG pO2 (85-104) mmHg ABG HCO3 (21-27) mEq/L ABG Total CO2 (20-26) mEq/L ABG O2 Saturation (95-98) % ABG Base Excess (-2 to 3) mEq/L Jack Test O2 Delivery Device Inspired O2 (1-15=lpm [id number]=%) Sodium (136-145) mEq/L Potassium (3.5-4.5) mEq/L Chloride (98-109) mEq/L Carbon Dioxide (19-29) mEq/L BUN (7-20) mg/dL Creatinine (0.57-1.11) mg/dL Est GFR ( Amer) (> 60) Est GFR (Non-Af Amer) (> 60) BUN/Creatinine Ratio (6-26) Glucose (70-99) mg/dL Calculated Osmolality (280-300) Lactic Acid 1.9 (0.5-2.2) mmol/L Calcium (8.6-10.8) mg/dL Troponin I 0.01 (0-0.03) ng/mL B-Natriuretic Peptide 210 H (0-100) pg/mL 06/02/17 Range/Units 12:44 WBC (4.3-11.1) K/mcL RBC (3.82-4.97) M/mcL Hgb (11.5-15.4) g/dL Hct (35.3-44.9) % MCV (83.0-100.0) fL MCH (28.0-33.3) pg MCHC (31.6-35.5) g/dL RDW (11.5-14.5) % Plt Count (140-400) K/mcL MPV (9.4-12.4) fL Seg Neutrophils % % Band Neutrophils % (0-4) % Lymphocytes % % Monocytes % % Eosinophils % % Neutrophils # (1.6-8.9) K/mcL Lymphocytes # (0.6-4.6) K/mcL Monocytes # (0.0-1.3) K/mcL Eosinophils # (0.0-0.6) K/mcL Toxic Vacuolation (Not Present) Platelet Estimate (Normal) PT (9.4-12.1) Seconds INR APTT (26.0-36.0) Seconds Sample Site R Brach ABG pH 7.41 (7.32-7.45) pH Units ABG pCO2 43 (35-45) mmHg ABG pO2 59 L (85-104) mmHg ABG HCO3 27 (21-27) mEq/L ABG Total CO2 28 H (20-26) mEq/L ABG O2 Saturation 90 L (95-98) % ABG Base Excess 2 (-2 to 3) mEq/L Jack Test N/A O2 Delivery Device Cannula Inspired O2 3.0 (1-15=lpm [id number]=%) Sodium (136-145) mEq/L Potassium (3.5-4.5) mEq/L Chloride (98-109) mEq/L Carbon Dioxide (19-29) mEq/L BUN (7-20) mg/dL Creatinine (0.57-1.11) mg/dL Est GFR ( Amer) (> 60) Est GFR (Non-Af Amer) (> 60) BUN/Creatinine Ratio (6-26) Glucose (70-99) mg/dL Calculated Osmolality (280-300) Lactic Acid (0.5-2.2) mmol/L Calcium (8.6-10.8) mg/dL Troponin I (0-0.03) ng/mL B-Natriuretic Peptide (0-100) pg/mL - Radiology Data Radiology results reviewed: Yes I reviewed the patient's radiology results. Single view chest x-ray is performed. This does not demonstrate evidence for infiltrate, effusion, pneumothorax, foreign body or heart failure. The cardiac silhouette is normal. Patient is hyperinflated consistent with emphysema/COPD. I do not see abnormality to the osseous structures of the chest. This is on my interpretation. Impressions Chest X-Ray 06/02/17 12:09 IMPRESSION: No acute process. D/ / Billy Huynh MD / Billy Huynh MD Interpreting Provider: Billy Huynh MD - EKG Data EKG attestation: Yes I reviewed and interpreted this EKG. EKG shows normal: Reports: sinus rhythm, axis, intervals, QRS complexes, ST-T waves Rate: Reports: normal (83) P waves: Reports: LAE Interpretation: Reports: no acute changes
[2017-06-02 12:39] LABS: Hematocrit 40.9 % (35.3-44.9); Mean Corpuscular HGB Conc 34.2 g/dL (31.6-35.5); Mean Corpuscular Hemoglobin 32.6 pg (28.0-33.3); Mean Corpuscular Volume 95.3 fL (83.0-100.0); Mean Platelet Volume 10.7 fL (9.4-12.4); Platelet Count 206 K/mcL (140-400); Red Blood Count 4.29 M/mcL (3.82-4.97); Red Cell Distribution Width 11.9 % (11.5-14.5)
[2017-06-02 12:47] LABS: ABG Base Excess 2 mEq/L (-2 to 3); ABG HCO3 27 mEq/L (21-27); ABG Oxygen Saturation 90 % (95-98); ABG PCO2 43 mmHg (35-45); ABG PH 7.41 pH Units (7.32-7.45); ABG PO2 59 mmHg (85-104); ABG TCO2 28 mEq/L (20-26)
[2017-06-02 12:49] LABS: INR 1.2; Prothrombin Time 12.7 Seconds (9.4-12.1)
[2017-06-02 12:51] LABS: Activated Partial Thrombo Time 28.9 Seconds (26.0-36.0)
[2017-06-02 12:58] LABS: BUN/Creatinine Ratio 22 (6-26); Blood Urea Nitrogen 18 mg/dL (7-20); Calcium 10.1 mg/dL (8.6-10.8); Carbon Dioxide 25 mEq/L (19-29); Chloride 97 mEq/L (98-109); Glucose 126 mg/dL (70-99); Osmolality,Calculated 283 (280-300); Potassium 4.3 mEq/L (3.5-4.5); Sodium 135 mEq/L (136-145); eGFR For African Americans > 60 (> 60); eGFR For Non-African Americans > 60 (> 60)
[2017-06-02 13:08] LABS: Eosinophils # 0.3 K/mcL (0.0-0.6); Lymphocytes # 0.3 K/mcL (0.6-4.6); Neutrophils # 6.2 K/mcL (1.6-8.9)
[2017-06-02 13:10] LABS: Monocytes # 1.1 K/mcL (0.0-1.3); Platelet Estimate Normal (Normal); Toxic Vacuolation Present (Not Present)
[2017-06-02] MEDS ORDERED: Ondansetron ODT 4 MG TAB.RAPDIS SL ONE (13:34)
[2017-06-02] MEDS ORDERED: 0.9 % Sodium Chloride 1,000 ML IVC SCH (13:47)
[2017-06-02] MEDS ORDERED: Ondansetron 4 MG/2 ML VIAL IVP PRN (13:47)
[2017-06-02] MEDS ORDERED: Naloxone 0.4 MG/ML INJ IVP PRN (13:47)
[2017-06-02] MEDS ORDERED: MOM Conc 10 ML UD.LIQ PO PRN (13:47)
[2017-06-02] MEDS: *HR* HYDROcodone/Acet 5/325 mg TABLET PO PRN (14:44)
[2017-06-02] MEDS ORDERED: Ipratropium/Albuterol Neb 3 ML IH SCH (16:00)
--- NOTE | 2017-06-02 17:32 | Internal Med History&Physical ---
Date of Encounter: 06/02/17 Time of Encounter: 17:00 Assessment and Plan (1) COPD (chronic obstructive pulmonary disease) Current visit: No Status: Chronic She has been started on Rocephin and Zithromax. I will add lactobacillus. I explained in detail why she should wear her home oxygen. Qualifiers: COPD type: unspecified COPD Qualified Code(s): J44.9 - Chronic obstructive pulmonary disease, unspecified Internal Medicine - H&P: HPI Chief complaint: Dyspnea and cough Admitted From: Emergency Dept Plans for Post Hospital Care: Home History of present illness: Ms. Walls is a 67 year old female who came to emergency room complaining of cough productive of green sputum with increased dyspnea onset May 30. When she did not improve after a few days she came to emergency room. Chest x- ray showed no obvious infiltrate. Influenza test was negative. She was diagnosed with exacerbation of COPD and admitted to [facility] floor for ongoing care needs. She was discharged from [facility] 02/05/2017 after admission with similar complaints. She qualified for home oxygen with saturation 84% while at rest on room air. She reports today she did not want to become "dependent" on oxygen and she has not worn it since delivery. She has been diagnosed with COPD but does not recall when pulmonary function test were done. She has smoked since age 18 up to1-1/2 packs per day. Past Med Surg Social Fam HX - Past Medical History Medical history: COPD Psychiatric history: no psych history - Past Surgical History Surgical History: no surgical history, , hysterectomy - Social History Smoking Status: Current every day smoker Smokeless Tobacco Status: No Alcohol use: none Drug use: none - Family History Mother History Unknown: Yes Adopted: No Family Member Ethnicity: Non- Living Status: Internal Medicine - H&P: Meds Aspirin Enteric Coated [Aspirin EC] 81 mg PO DAILY 02/18/15 [History] Cholecalciferol (Vitamin D3) [Vitamin D] 1,000 unit PO DAILY 02/18/15 [History] Hydrocodone/Acetaminophen [[place] 5-325 Tablet] 1 tab PO Q6H PRN #4 tab 02/18/15 [Rx] Albuterol Sulfate [Albuterol Inhaler] 1 puff IH QID PRN 07/16/15 [History] Albuterol Sulfate [Albuterol Inhaler] 2 puff IH QID 2 Days inhaler 01/03/16 [Rx ] ALPRAZolam [Xanax 0.5 MG Tablet] 0.5 mg PO BID 06/02/17 [History] 3 Allergy/AdvReac Type Severity Reaction Status Date / Time No Known Allergies Allergy Verified 01/03/16 10:03 All Systems PM: A 10-system review of systems was performed and is negative for pertinent findings except as documented above in the HPI. Review of systems: Review of systems from her February 2017 [facility] hospitalization were reviewed and revised as below. Gen.: She states her weight has decreased from approximately 110 pounds one year ago to present weight of 94 pounds, unintentionally Cardiovascular: She denies hypertension CT heart failure angina DVT or pulmonary embolism. She states she had cerebral aneurysm intervention in 1999. She has had peripheral bypass surgery on her left leg but does not know details. Respiratory: As per history of present illness GI: She has been diagnosed with fatty liver disease. She denies other disorders of her liver gallbladder or exocrine pancreas : She denies hematuria dysuria or kidney stones Neurologic: She denies large distribution strokes or seizures Endocrine: She denies diabetes thyroid disease or hyperlipidemia Hematology/oncology: She states she had cervical cancer approximately 35 years ago and had curative hysterectomy. She denies other internal malignancies or blood disorders Psychiatric: She has feelings of depression and anxiety at times but does not take medication [place] skeletal: She has DJD but denies gout or other bone joint or muscle disorders. - Constitutional Vitals: Temp Pulse Resp BP Pulse Ox 98.6 F 84 20 108/59 93 06/02/17 14:10 06/02/17 14:10 06/02/17 14:10 06/02/17 14:10 06/02/17 14:25 Exam: Gen.: She is a well-developed lean female sitting comfortably in bed who appears in no acute distress HEENT: Head is atraumatic and normocephalic. Eyes: EOMI. There is no scleral icterus. Mouth: Mucosa is moist. Neck: Supple and nontender. There is no thyromegaly or adenopathy noted. Heart: Regular without murmurs gallops or ectopics Lungs: No wheezes or crackles are heard. Abdomen: Soft and nontender. No masses or guarding noted. Extremities: There is no cyanosis edema or clubbing noted. Dorsalis pedis and posterior tibial pulses are trace palpable bilaterally. Her feet are warm to touch. Neurologic: Mental status: She is talkative and a good historian. Cranial nerves: Smile is symmetric. Forehead wrinkles bilaterally. Tongue protrudes midline. EOMI. Motor: There is no pronator drift. Cerebellar: Finger to nose is intact bilaterally. Skin: Warm and dry Internal Med - H&P Results - Labs CBC & Chem 7: 06/02/17 12:30 06/02/17 12:30
[2017-06-02] MEDS: *HR* Promethazine 25 MG/ML VIAL IVP PRN ×2 (19:03→23:13)
[2017-06-02] MEDS: ALPRAZolam 0.5 MG TABLET PO SCH ×2 (19:52→21:19)
[2017-06-03] MEDS: *HR* HYDROcodone/Acet 5/325 mg TABLET PO PRN ×2 (04:59→13:13)
[2017-06-03] MEDS: Aspirin Enteric Coated 81 MG Tablet PO SCH (09:14)
[2017-06-03] MEDS: ALPRAZolam 0.5 MG TABLET PO SCH ×2 (09:14→22:06)
[2017-06-03] MEDS: Cholecalciferol (D-3) 1,000 UNIT TABLET PO SCH (09:14)
[2017-06-03] MEDS: predniSONE 20 MG TABLET PO SCH (09:14)
[2017-06-03] MEDS: *HR* Promethazine 25 MG/ML VIAL IVP PRN ×2 (09:28→17:54)
--- NOTE | 2017-06-03 10:30 | Internal Med Progress Note ---
Date of Encounter: 06/03/17 Time of Encounter: 10:20 - Assessment and plan (1) COPD (chronic obstructive pulmonary disease) Current Visit: No Status: Chronic Assessment and plan: June 03. Continue Rocephin, Zithromax, and lactobacillus. I will add Symbicort and Tessalon. Qualifiers: COPD type: unspecified COPD Qualified Code(s): J44.9 - Chronic obstructive pulmonary disease, unspecified - Subjective Interval history: June 03. She has no new complaints. She states she has dry cough and does not feel well overall. - Constitutional Vitals: Temp Pulse Resp BP Pulse Ox 98.0 F 59 17 108/58 99 06/03/17 06:35 06/03/17 06:35 06/03/17 06:35 06/03/17 06:35 06/03/17 06:35 Exam: She is sitting in bed with frequent coughing. Heart is regular without murmurs gallops or ectopics. Lungs show no wheezes or crackles. Reviewed her medications and lab results. Internal Medicine: Result - Labs CBC & Chem 7: 06/02/17 12:30 06/02/17 12:30 - ABG Interpretation ABG results: ABG ABG pH 7.41 pH Units (7.32-7.45) 06/02/17 12:44 ABG pCO2 43 mmHg (35-45) 06/02/17 12:44 ABG pO2 59 mmHg (85-104) L 06/02/17 12:44 ABG O2 Saturation 90 % (95-98) L 06/02/17 12:44 PT/INR, D-dimer PT 12.7 Seconds (9.4-12.1) H 06/02/17 12:30 Consult Discharge Plan - Plan Referrals: Ángel Velazquez DO [Primary Care Provider] - 1 week
[2017-06-03] MEDS: Budesonide/Formoterol 160/4.5 MDI IH SCH ×2 (10:42→22:19)
[2017-06-03] MEDS: Albuterol 2.5 MG/3 ML NEBULIZER IH PRN (10:42)
[2017-06-03] MEDS: Benzonatate 100 MG CAPSULE PO SCH ×3 (13:13→22:55)
[2017-06-03] MEDS: Azithromycin 500 MG in D5% in Water 250 ML IVPB SCH (14:01)
[2017-06-04] MEDS: *HR* HYDROcodone/Acet 5/325 mg TABLET PO PRN ×3 (06:17→19:47)
[2017-06-04] MEDS: Cholecalciferol (D-3) 1,000 UNIT TABLET PO SCH (09:05)
[2017-06-04] MEDS: Aspirin Enteric Coated 81 MG Tablet PO SCH (09:05)
[2017-06-04] MEDS: Benzonatate 100 MG CAPSULE PO SCH ×2 (09:05→17:10)
[2017-06-04] MEDS: ALPRAZolam 0.5 MG TABLET PO SCH ×2 (09:05→21:47)
[2017-06-04] MEDS: predniSONE 20 MG TABLET PO SCH (09:05)
--- NOTE | 2017-06-04 09:47 | Internal Med Progress Note ---
Date of Encounter: 06/04/17 Time of Encounter: 09:35 - Assessment and plan (1) COPD (chronic obstructive pulmonary disease) Current Visit: No Status: Chronic Assessment and plan: June 03. Continue Rocephin, Zithromax, and lactobacillus. I will add Symbicort and Tessalon. June 04. Continue present regimen. Anticipate discharge home tomorrow. Qualifiers: COPD type: unspecified COPD Qualified Code(s): J44.9 - Chronic obstructive pulmonary disease, unspecified - Subjective Interval history: June 03. She has no new complaints. She states she has dry cough and does not feel well overall. June 04. She has no new complaints but states she does not feel improved. She feels weak and states she is unable to walk much. - Constitutional Vitals: Temp Pulse Resp BP Pulse Ox 97.8 F 65 18 103/54 91 06/04/17 06:16 06/04/17 06:16 06/04/17 06:16 06/04/17 06:16 06/04/17 06:16 Exam: She is sitting in bed wearing oxygen. Her saturation is approximately 91% at rest. Pulse approximately 70. I reviewed her medications and past lab results. Internal Medicine: Result - Labs CBC & Chem 7: 06/02/17 12:30 06/02/17 12:30 - ABG Interpretation ABG results: ABG ABG pH 7.41 pH Units (7.32-7.45) 06/02/17 12:44 ABG pCO2 43 mmHg (35-45) 06/02/17 12:44 ABG pO2 59 mmHg (85-104) L 06/02/17 12:44 ABG O2 Saturation 90 % (95-98) L 06/02/17 12:44 PT/INR, D-dimer PT 12.7 Seconds (9.4-12.1) H 06/02/17 12:30 - VTE Documentation of Mechanical Device: Graduated compression elastic hosiery Consult Discharge Plan - Plan Referrals: Ángel Velazquez DO [Primary Care Provider] - 1 week
[2017-06-04] MEDS: Albuterol 2.5 MG/3 ML NEBULIZER IH PRN (10:16)
[2017-06-04] MEDS: Budesonide/Formoterol 160/4.5 MDI IH SCH ×2 (10:16→22:50)
[2017-06-04] MEDS: *HR* Promethazine 25 MG/ML VIAL IVP PRN ×2 (12:58→19:47)
[2017-06-04] MEDS: Azithromycin 500 MG in D5% in Water 250 ML IVPB SCH (13:42)
[2017-06-05] MEDS: Benzonatate 100 MG CAPSULE PO SCH ×2 (00:23→08:38)
[2017-06-05] MEDS: *HR* Promethazine 25 MG/ML VIAL IVP PRN (02:39)
[2017-06-05] MEDS: Albuterol 2.5 MG/3 ML NEBULIZER IH PRN ×2 (02:49→09:21)
[2017-06-05 06:56] VITALS: BP 106/59
[2017-06-05] MEDS: *HR* HYDROcodone/Acet 5/325 mg TABLET PO PRN (08:37)
[2017-06-05] MEDS: Cholecalciferol (D-3) 1,000 UNIT TABLET PO SCH (08:37)
[2017-06-05] MEDS: Aspirin Enteric Coated 81 MG Tablet PO SCH (08:39)
[2017-06-05] MEDS: ALPRAZolam 0.5 MG TABLET PO SCH (08:39)
[2017-06-05] MEDS ORDERED: predniSONE 20 MG TABLET PO SCH (09:00)
[2017-06-05] MEDS: Budesonide/Formoterol 160/4.5 MDI IH SCH (09:18)
--- NOTE | 2017-06-05 09:51 | Discharge Summary ---
Date of Encounter: 06/05/17 Time of Encounter: 09:40 - Discharge Diagnosis (1) COPD (chronic obstructive pulmonary disease) Priority: Primary Status: Chronic Qualifiers: COPD type: unspecified COPD Qualified Code(s): J44.9 - Chronic obstructive pulmonary disease, unspecified - Discharge Medications Prescriptions: Benzonatate [Tessalon] 100 mg PO Q8HR #15 capsule Cefuroxime PO [Ceftin] 500 mg PO Q12HR #10 tablet Azithromycin [Zithromax] 250 mg PO DAILY #5 tablet GuaiFENesin ER [Mucinex] 600 mg PO BID #10 tbbp.12hr Lactobacillus [Culturelle] 1 each PO BID #10 cap.sprink Home Medications: Aspirin Enteric Coated [Aspirin EC] 81 mg PO DAILY 02/18/15 [History] Cholecalciferol (Vitamin D3) [Vitamin D] 1,000 unit PO DAILY 02/18/15 [History] Hydrocodone/Acetaminophen [[place] 5-325 Tablet] 1 tab PO Q6H PRN #4 tab 02/18/15 [Rx] Albuterol Sulfate [Albuterol Inhaler] 1 puff IH QID PRN 07/16/15 [History] Albuterol Sulfate [Albuterol Inhaler] 2 puff IH QID 2 Days inhaler 01/03/16 [Rx ] ALPRAZolam [Xanax 0.5 MG Tablet] 0.5 mg PO BID 06/02/17 [History] Azithromycin [Zithromax] 250 mg PO DAILY #5 tablet 06/05/17 [Rx] Benzonatate [Tessalon] 100 mg PO Q8HR #15 capsule 06/05/17 [Rx] Cefuroxime PO [Ceftin] 500 mg PO Q12HR #10 tablet 06/05/17 [Rx] GuaiFENesin ER [Mucinex] 600 mg PO BID #10 tbbp.12hr 06/05/17 [Rx] Lactobacillus [Culturelle] 1 each PO BID #10 cap.sprink 06/05/17 [Rx] Allergies/Adverse Reactions: 3 Allergy/AdvReac Type Severity Reaction Status Date / Time No Known Allergies Allergy Verified 01/03/16 10:03 Date of admission: 06/02/17 13:40 Primary care physician: Ángel Velazquez, - Patient Status Disposition: Home, Self-Care Condition: Fair Overall status at discharge: patient is progressing back to baseline - Discharge Instructions Follow Up With: Ángel Velazquez DO [Primary Care Provider] - 1 week - Diet and Activity Activity: resume usual activities as tolerated Diet: advance to your usual diet Hospital course: Ms. Walls is a 67 year old female who came to emergency room complaining of cough productive of green sputum with increased dyspnea onset May 30. When she did not improve after a few days she came to emergency room. Chest x- ray showed no obvious infiltrate. Influenza test was negative. She was diagnosed with exacerbation of COPD and admitted to [facility] for ongoing care needs. Initial orders were written by the emergency room physician. I saw her on June 02 and performed the history and physical. She was started on Rocephin and Zithromax with lactobacillus. Sputum culture returned showing gram -negative rods on preliminary report. The final report is pending at time of this dictation. She will continue with Ceftin and Zithromax for 5 additional days at discharge. Her PCP can follow up on the final sputum culture report. Room air oximetry will be checked on a 6 minute walk prior to discharge. She will follow with her PCP Dr. Velazquez within 1 week. - Time Spent with Patient Total time spent providing and/or coordinating discharge services: - Constitutional Vitals: Temp Pulse Resp BP Pulse Ox 98.2 F 67 16 106/59 96 06/05/17 06:00 06/05/17 06:00 06/05/17 09:21 06/05/17 06:00 06/05/17 09:21 - VTE Documentation of Mechanical Device: Graduated compression elastic hosiery
--- NOTE | 2017-06-05 15:53 | Electrocardiograph Report ---
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
== END 2017-06-05 12:45 | disposition home or self-care (01) ==
LOC: INPPIK 12:08 → EMEROOPIK 12:08 → INPPIK 13:59
PROVIDERS: ADMIT Emergency Medicine; ATTEND Internal Medicine

== ENCOUNTER 2017-11-23 17:43 | Observation (INO) ==
[2017-11-23] MEDS ORDERED: Ipratropium/Albuterol Neb 3 ML IH ONE (18:00)
[2017-11-23] MEDS ORDERED: Albuterol 2.5 MG/3 ML NEBULIZER IH ONE (18:00)
[2017-11-23] MEDS ORDERED: *HR* HYDROcodone/Acet 5/325 mg TABLET PO ONE (18:04)
[2017-11-23] MEDS ORDERED: Ondansetron ODT 4 MG TAB.RAPDIS SL ONE (18:04)
[2017-11-23] MEDS: methylPREDNISolone 125 MG/2 ML VIAL IVP ONE ×2 (18:11→18:47)
--- NOTE | 2017-11-23 18:11 | Emergency Department Note ---
Disposition Clinical Impression: Acute exacerbation of chronic obstructive airways disease Disposition: Transfer Short-Term Hosp Condition: Fair Referrals: Ángel Velazquez DO [Primary Care Provider] - Forms: ED Satisfaction Letter Time of Disposition: 20:01 ( will admit) SOB HPI - General Chief Complaint: ED Shortness of Breath/Dyspnea Stated Complaint: COPD with little or no air cond. Difficult breath Time Seen by Provider: 11/23/17 18:09 Source: patient Mode of arrival: ambulatory Limitations: no limitations, age Nursing Notes Reviewed: Yes Vital Signs Reviewed: Yes - History of Present Illness 67-year-old female with history of COPD, presents with complaints of cough congestion shortness of breath. She reports the symptoms started on Sunday and has progressively worsened. Patient wears oxygen normally and is on 3 L of oxygen all the time. She reports that her coughing is shortness of breath has gotten worse, and that treatments at home have not helped. She complains of a productive cough but no fevers or chills. She denies any chest tightness heaviness pressure no anginal type symptoms. Pt Subjective Complaint: shortness of breath, cough Onset (ago): Just [employer] Context: recent illness Severity: moderate Consistency/Duration: constant Improves with: oxygen, rest, bronchodilators Worsens with: exertion Known history of: COPD Associated symptoms: Reports: denies other symptoms, cough, wheezing, sputum production. Denies: chest pain, pain with inspiration, fever, orthopnea, lower extremity pain, polyuria, polydipsia, parasthesias, palpitations, hemoptysis, diaphoresis, nausea/vomiting, abdominal pain Treatment prior to arrival: oxygen, bronchodilator Cough present: Yes Cough Description: Voluntary Cough Frequency: Intermittent Sputum production: Yes Sputum Amount: Scant Sputum Color: Clear - Related Data Home Medications Medication Instructions Recorded Confirmed Aspirin Enteric Coated [Aspirin EC] 81 mg PO DAILY 02/18/15 06/23/17 Cholecalciferol (Vitamin D3) 1,000 unit PO DAILY 02/18/15 06/23/17 [Vitamin D] ALPRAZolam [Xanax 0.5 MG Tablet] 0.5 mg PO BID 06/02/17 06/23/17 Albuterol Sulfate [Albuterol 1 - 2 puff IH QID PRN 06/23/17 06/23/17 Inhaler] Multivitamin [One Daily Essential] 1 tab PO DAILY 06/23/17 06/23/17 Previous Rx's Medication Instructions Recorded Hydrocodone/Acetaminophen [[place] 1 tab PO Q6H PRN #4 tab 02/18/15 5-325 Tablet] Ciprofloxacin OPTH Soln [Ciloxan 2 drop BOTH EYES Q6HR #1 bottle 07/01/17 OPTH Soln] SUMAtriptan succinate [Imitrex] 50 mg PO Q2H PRN #7 tablet 07/01/17 Allergies Allergy/AdvReac Type Severity Reaction Status Date / Time acetaminophen [From Percocet] AdvReac Nausea Verified 06/23/17 17:56 Oxycodone [From Percocet] AdvReac Nausea Verified 06/23/17 17:56 All systems ED: reviewed and negative except as stated. Respiratory: Reports: cough, dyspnea, wheezes Past Medical History - Past Medical History Medical history: Reports: COPD, DVT, liver disease Surgical history: Reports: no surgical history, , carotid endarterectomy (Right), hysterectomy (Total), other (Left leg bypass, brain aneurysm surgery) Psychiatric history: Reports: no psych history - Social History Smoking Status: Former smoker Smokeless Tobacco Status: No Alcohol use: Reports: none Drug use: Reports: none Physical Exam - General Limitations: age General appearance: alert, anxious - Head Head exam: atraumatic, normocephalic, normal inspection - Eye Eye exam: Present: normal appearance, PERRL, EOMI - Expanded Eye Exam Pupils: Left: reactive - ENT ENT exam: normal exam, normal oropharynx, mucous membranes moist - Expanded ENT Exam External ear exam: Present: normal external inspection Mouth exam: Present: normal external inspection Teeth exam: Present: normal inspection Throat exam: Present: normal inspection - Neck Neck exam: Present: normal inspection, full ROM, trachea midline - Chest Chest inspection: Present: normal inspection, symmetric chest wall rise - Respiratory Respiratory exam: Present: wheezes, other (Decreased breath sounds bilaterally) - Cardiovascular Cardiovascular exam: Present: regular rate, normal rhythm, normal heart sounds - Abdominal Exam Abdominal exam: Present: soft, Non-Tender. Absent: tenderness, distention, guarding, rebound, rigidity - Extremities Exam Extremities exam: Present: normal inspection, full ROM. Absent: tenderness, pedal edema - Expanded Upper Extremity Exam Shoulder exam: Present: normal inspection, full ROM Arm exam: Present: normal inspection, full ROM Elbow exam: Present: normal inspection, full ROM Forearm/Wrist exam: Present: normal inspection, full ROM Hand exam: Present: normal inspection, full ROM Vascular exam: Normal: capillary refill, radial pulse - Expanded Lower Extremity Exam Hip/Pelvis exam: Present: normal inspection, full ROM Upper leg exam: Present: normal inspection, full ROM Knee exam: Present: normal inspection, full ROM Lower leg exam: Present: normal inspection, full ROM Ankle exam: Present: normal inspection, full ROM Foot/toe exam: Present: normal inspection, full ROM Neurovascular/Tendon exam: Absent: motor deficit, sensory deficit, tendon deficit - Back Exam Back exam: Present: normal inspection, full ROM. Absent: tenderness - Neurological Exam Neurological exam: Present: alert, oriented X3 - Expanded Neurological Exam Patient oriented to: Present: person, place, time Coma Scale Eye Opening: Spontaneous Coma Scale Motor Response: Obeys Commands Coma Scale Verbal Response: Oriented Coma Scale Total: 15 - Psychiatric Psychiatric exam: Present: normal affect, normal mood - Skin Skin exam: Present: warm, dry, intact, normal color Course - Reevaluation(s) Time: 20:01 (Patient is still complaining of some shortness of breath, and a migraine headache. She was ordered Nubain 5 mg IV and 4 of Zofran IV.) Vital Signs Temperature 98.4 F 11/23/17 17:46 Pulse Rate 94 11/23/17 17:46 Respiratory Rate 20 11/23/17 17:46 Blood Pressure 159/76 11/23/17 17:46 O2 Sat by Pulse Oximetry 91 11/23/17 17:46 Temperature 98.4 F 11/23/17 17:46 Pulse Rate 81 11/23/17 19:52 Respiratory Rate 25 11/23/17 19:52 Blood Pressure 138/70 11/23/17 19:52 O2 Sat by Pulse Oximetry 93 11/23/17 19:52 Oxygen Delivery Oxygen Delivery Nasal Cannula Shortness of Breath/Dyspnea - MDM Narrative Medical decision making narrative: CBC, chemistries, troponin EKG chest x-ray portable was obtained ABG was also ordered. Patient was given 125 mg IV Solu-Medrol. Blood culture 2 obtained, patient was given Rocephin 2 g IV. She received the Lortab 5 for her headache and Zofran 4 mg OTD. - Differential Diagnosis Likely: acute exacerbation of chronic obstructive airways disease, congestive heart failure, pneumonia, asthma with exacerbation, pneumothorax - Medical Records Medical records reviewed: Yes I reviewed the patient's medical records. - Lab Data Lab results reviewed: Yes I reviewed the patient's lab results. Result diagrams: 11/23/17 19:10 11/23/17 19:10 Lab Results 11/23/17 11/23/17 11/23/17 Range/Units 18:30 19:10 19:10 WBC 7.7 (4.3-11.1) K/mcL RBC 4.53 (3.82-4.97) M/mcL Hgb 14.3 (11.5-15.4) g/dL Hct 42.2 (35.3-44.9) % MCV 93.2 (83.0-100.0) fL MCH 31.6 (28.0-33.3) pg MCHC 33.9 (31.6-35.5) g/dL RDW 11.3 L (11.5-14.5) % Plt Count 238 (140-400) K/mcL MPV 10.5 (9.4-12.4) fL Immature Gran % 0.3 (0-4) % Seg Neutrophils % 52.0 % Lymphocytes % 24.6 % Monocytes % 13.2 % Eosinophils % 9.3 % Basophils % 0.6 % Neutrophils # 4.0 (1.6-8.9) K/mcL Lymphocytes # 1.9 (0.6-4.6) K/mcL Monocytes # 1.0 (0.0-1.3) K/mcL Eosinophils # 0.7 H (0.0-0.6) K/mcL Basophils # 0.1 (0.0-0.2) K/mcL Sample Site R Radial ABG pH 7.40 (7.32-7.45) pH Units ABG pCO2 48 H (35-45) mmHg ABG pO2 72 L (85-104) mmHg ABG HCO3 30 H (21-27) mEq/L ABG Total CO2 32 H (20-26) mEq/L ABG O2 Saturation 94 L (95-98) % ABG Base Excess 4 H (-2 to 3) mEq/L Jack Test Positive O2 Delivery Device Cannula Inspired O2 2.0 (1-15=lpm [id number]=%) Sodium 134 L (136-145) mEq/L Potassium 4.3 (3.5-5.1) mEq/L Chloride 97 L (98-107) mEq/L Carbon Dioxide 27 (23-29) mEq/L BUN 16 (8-23) mg/dL Creatinine 0.68 (0.60-1.20) mg/dL Est GFR ( Amer) > 60 (> 60) Est GFR (Non-Af Amer) > 60 (> 60) BUN/Creatinine Ratio 24 (6-26) Glucose 111 H (70-105) mg/dL Calculated Osmolality 280 (280-300) Lactic Acid (0.5-2.2) mmol/L Calcium 10.2 (8.6-10.3) mg/dL Troponin I < 0.03 (< 0.04) ng/mL B-Natriuretic Peptide (Less than 100) pg/mL 11/23/17 11/23/17 Range/Units 19:10 19:20 WBC (4.3-11.1) K/mcL RBC (3.82-4.97) M/mcL Hgb (11.5-15.4) g/dL Hct (35.3-44.9) % MCV (83.0-100.0) fL MCH (28.0-33.3) pg MCHC (31.6-35.5) g/dL RDW (11.5-14.5) % Plt Count (140-400) K/mcL MPV (9.4-12.4) fL Immature Gran % (0-4) % Seg Neutrophils % % Lymphocytes % % Monocytes % % Eosinophils % % Basophils % % Neutrophils # (1.6-8.9) K/mcL Lymphocytes # (0.6-4.6) K/mcL Monocytes # (0.0-1.3) K/mcL Eosinophils # (0.0-0.6) K/mcL Basophils # (0.0-0.2) K/mcL Sample Site ABG pH (7.32-7.45) pH Units ABG pCO2 (35-45) mmHg ABG pO2 (85-104) mmHg ABG HCO3 (21-27) mEq/L ABG Total CO2 (20-26) mEq/L ABG O2 Saturation (95-98) % ABG Base Excess (-2 to 3) mEq/L Jack Test O2 Delivery Device Inspired O2 (1-15=lpm [id number]=%) Sodium (136-145) mEq/L Potassium (3.5-5.1) mEq/L Chloride (98-107) mEq/L Carbon Dioxide (23-29) mEq/L BUN (8-23) mg/dL Creatinine (0.60-1.20) mg/dL Est GFR ( Amer) (> 60) Est GFR (Non-Af Amer) (> 60) BUN/Creatinine Ratio (6-26) Glucose (70-105) mg/dL Calculated Osmolality (280-300) Lactic Acid 1.1 (0.5-2.2) mmol/L Calcium (8.6-10.3) mg/dL Troponin I (< 0.04) ng/mL B-Natriuretic Peptide 30 (Less than 100) pg/mL - Radiology Data Radiology results reviewed: Yes I reviewed the patient's radiology results. Chest x-ray portable shows COPD , small pulmonary nodule was noted on the chest x-ray by radiology reading, please note that I have told the patient about this finding. - EKG Data EKG attestation: Yes I reviewed and interpreted this EKG. EKG results narrative: EKG is normal sinus rhythm, there appears to be P Casper enlargement in V2 consistent with right atrial enlargement, otherwise no acute abnormality is noted. EKG shows normal: Reports: sinus rhythm Rate: Reports: normal Rhythm: Reports: NSR Ash/QRS: Reports: normal
[2017-11-23] MEDS ORDERED: Albuterol 2.5 MG/3 ML NEBULIZER ONE (18:15)
[2017-11-23 18:34] LABS: ABG Base Excess 4 mEq/L (-2 to 3); ABG HCO3 30 mEq/L (21-27); ABG Oxygen Saturation 94 % (95-98); ABG PCO2 48 mmHg (35-45); ABG PO2 72 mmHg (85-104); ABG TCO2 32 mEq/L (20-26)
[2017-11-23] MEDS ORDERED: cefTRIAXone 2,000 MG in Water for inj. (sterile) 20 ML 20 ML IVP SCH (19:00)
[2017-11-23] MEDS ORDERED: Ondansetron 4 MG/2 ML VIAL IVP ONE (19:17)
[2017-11-23] MEDS ORDERED: *HR* Nalbuphine 10 MG/ML AMPUL IV PRN (19:17)
[2017-11-23 19:27] LABS: Basophils # 0.1 K/mcL (0.0-0.2); Basophils % 0.6 %; Eosinophils # 0.7 K/mcL (0.0-0.6); Eosinophils % 9.3 %; Hematocrit 42.2 % (35.3-44.9); Hemoglobin 14.3 g/dL (11.5-15.4); Immature Granulocytes % 0.3 % (0-4); Lymphocytes # 1.9 K/mcL (0.6-4.6); Lymphocytes % 24.6 %; Mean Corpuscular HGB Conc 33.9 g/dL (31.6-35.5); Mean Corpuscular Hemoglobin 31.6 pg (28.0-33.3); Mean Corpuscular Volume 93.2 fL (83.0-100.0); Mean Platelet Volume 10.5 fL (9.4-12.4); Monocytes % 13.2 %; Platelet Count 238 K/mcL (140-400); Red Blood Count 4.53 M/mcL (3.82-4.97); Red Cell Distribution Width 11.3 % (11.5-14.5)
[2017-11-23 19:52] LABS: Troponin I < 0.03 ng/mL (< 0.04)
[2017-11-23 19:53] LABS: BUN/Creatinine Ratio 24 (6-26); Blood Urea Nitrogen 16 mg/dL (8-23); Calcium 10.2 mg/dL (8.6-10.3); Carbon Dioxide 27 mEq/L (23-29); Chloride 97 mEq/L (98-107); Glucose 111 mg/dL (70-105); Osmolality,Calculated 280 (280-300); Potassium 4.3 mEq/L (3.5-5.1); Sodium 134 mEq/L (136-145); eGFR For African Americans > 60 (> 60); eGFR For Non-African Americans > 60 (> 60)
[2017-11-23] MEDS ORDERED: *HR* HYDROcodone/Acet 5/325 mg TABLET PO PRN (20:57)
[2017-11-23] MEDS: ALPRAZolam 0.5 MG TABLET PO SCH (21:58)
[2017-11-24] MEDS: ALPRAZolam 0.5 MG TABLET PO SCH ×2 (00:30→08:25)
[2017-11-24] MEDS: Ciprofloxacin OPTH Soln 2.5 ML BOTTLE BOTH EYES SCH ×3 (02:25→11:07)
[2017-11-24] MEDS: *HR* Promethazine 25 MG/ML VIAL IVP PRN ×3 (03:10→12:51)
[2017-11-24] MEDS: *HR* Nalbuphine 10 MG/ML AMPUL IV PRN ×3 (03:11→12:49)
[2017-11-24] MEDS ORDERED: Aspirin Enteric Coated 81 MG Tablet PO SCH (09:00)
[2017-11-24] MEDS ORDERED: Cholecalciferol (D-3) 1,000 UNIT TABLET PO SCH (09:00)
[2017-11-24] MEDS ORDERED: Multivit/Ca/Min/Fe/FA 1 TAB TABLET PO SCH (09:00)
[2017-11-24 12:48] VITALS: BP 116/57
--- NOTE | 2017-11-24 15:17 | Internal Med History&Physical ---
Date of Encounter: 11/24/17 Time of Encounter: 14:45 Assessment and Plan (1) COPD exacerbation Current visit: No Status: Acute She was started on Rocephin in emergency room. Chest CT will be done to further evaluate the right upper lobe area abnormality. Internal Medicine - H&P: HPI Chief complaint: Dyspnea Admitted From: Emergency Dept Plans for Post Hospital Care: Home History of present illness: Ms. Walls is a 67 year old female who came to emergency room complaining of increased dyspnea onset approximately November 21. She had cough productive of white phlegm. She has had headache. She was evaluated in emergency room and felt to have exacerbation of COPD. She was admitted to [facility] floor for ongoing care needs. She states she feels improved at the present time and feels she can be discharged home. Her respiratory history is significant for quitting smoking May 2017. She started at age 18 and smoked up to one and one half packs per day. She claims she had PFTs approximately 2012 which showed COPD. She qualified for home oxygen February 2017. She reports she was told by her PCP a weeks ago she could attempt weaning herself off oxygen. Past Med Surg Social Fam HX - Past Medical History Medical history: COPD, DVT, liver disease Additional medical history: Brain anerysium. left leg bypass. fatty liver. carotids Psychiatric history: no psych history - Past Surgical History Surgical History: no surgical history, , carotid endarterectomy (Right) , hysterectomy (Total), other (Left leg bypass, brain aneurysm surgery) Additional surgical history: Brain surgery, Carotid sx - Social History Smoking Status: Former smoker Smokeless Tobacco Status: No Alcohol use: none Drug use: none - Family History Father Family Member Ethnicity: Non- Brother Family Member Ethnicity: Non- Living Status: Hx Family Cardiac Disorders: Yes (Stroke) Hx Family Cancer: Yes (Lung) Sister Family Member Ethnicity: Non- Living Status: Hx Family Cardiac Disorders: Yes (IA) Hx Family Respiratory Disorders: Yes (COPD) Mother Adopted: No Family Member Ethnicity: Non- Living Status: Hx Family Cardiac Disorders: Yes (Aneurysm, TIAs) Internal Medicine - H&P: Meds Aspirin Enteric Coated [Aspirin EC] 81 mg PO DAILY 02/18/15 [History] Cholecalciferol (Vitamin D3) [Vitamin D] 1,000 unit PO DAILY 02/18/15 [History] Hydrocodone/Acetaminophen [[place] 5-325 Tablet] 1 tab PO Q6H PRN #4 tab 02/18/15 [Rx] ALPRAZolam [Xanax 0.5 MG Tablet] 0.5 mg PO BID 06/02/17 [History] Albuterol Sulfate [Albuterol Inhaler] 1 - 2 puff IH QID PRN 06/23/17 [History] Multivitamin [One Daily Essential] 1 tab PO DAILY 06/23/17 [History] SUMAtriptan succinate [Imitrex] 50 mg PO Q2H PRN #7 tablet 07/01/17 [Rx] 3 Allergy/AdvReac Type Severity Reaction Status Date / Time acetaminophen [From Percocet] AdvReac Nausea Verified 06/23/17 17:56 Oxycodone [From Percocet] AdvReac Nausea Verified 06/23/17 17:56 All Systems PM: A 10-system review of systems was performed and is negative for pertinent findings except as documented above in the HPI. Review of systems: Review of systems from her May 2017 [facility] hospitalization were reviewed and revised as below. Gen.: Her weight has increased from 43.545 kg on 07/15/2015 to 52.617 kg on admission now. She attributes this to stopping smoking. Cardiovascular: She denies hypertension IA heart failure angina DVT or pulmonary embolism. She states she had cerebral aneurysm intervention in 1999. She has had peripheral bypass surgery on her left leg but does not know details. Respiratory: As per history of present illness GI: She has been diagnosed with fatty liver disease. She denies other disorders of her liver gallbladder or exocrine pancreas : She denies hematuria dysuria or kidney stones Neurologic: She denies large distribution strokes or seizures Endocrine: She denies diabetes thyroid disease or hyperlipidemia Hematology/oncology: She states she had cervical cancer approximately 35 years ago and had curative hysterectomy. She denies other internal malignancies or blood disorders Psychiatric: She has feelings of depression and anxiety at times but does not take medication [place] skeletal: She has DJD but denies gout or other bone joint or muscle disorders. - Constitutional Vitals: Temp Pulse Resp BP Pulse Ox 98.2 F 64 16 116/57 96 11/24/17 10:51 11/24/17 12:47 11/24/17 10:51 11/24/17 12:47 11/24/17 10:51 Exam: Gen.: She is a well-developed well-nourished female who appears in no acute distress at present time HEENT: Head is atraumatic and normocephalic. Eyes: EOMI. There is no scleral icterus. Mouth: Mucosa is moist. Neck: Supple and nontender. There is no thyromegaly or adenopathy noted. Heart: Regular without murmurs gallops or ectopics Lungs: No wheezes or crackles are heard. Abdomen: Soft and nontender. No masses or guarding are noted. Extremities: There is no cyanosis edema or clubbing noted. Dorsalis pedis and posttibial pulses are trace to 1+ palpable bilaterally. She has an IV in her right lower medial leg. Neurologic: Mental status: She is talkative and a good historian. Cranial nerves: Smile is symmetric. Forehead wrinkles bilaterally. Tongue protrudes midline. EOMI. Motor: There is no pronator drift. Cerebellar: Finger to nose is intact bilaterally. Skin: Warm and dry Internal Med - H&P Results - Labs CBC & Chem 7: 11/23/17 19:10 11/23/17 19:10 - Impressions ITS Impressions Chest CT 11/24/17 09:11 IMPRESSION: Ground-glass opacity throughout the right upper lobe, for which pneumonitis or asymmetric edema are considerations. Mild precarinal adenopathy. Follow-up to resolution recommended. Emphysema. Sequela of granulomatous disease. A few small 2-3 mm noncalcified pulmonary nodules are indeterminate, for which follow-up recommendations are as below. Fleischner Society guidelines for follow-up and management of incidentally detected pulmonary nodules:Single Solid Nodule:Nodule size less than 6 mmIn a low-risk patient, no routine follow-up.In a high-risk patient, optional CT at 12 months. Nodule size equals 6-8 mmIn a low-risk patient, CT at 6-12 months, then consider CT at 18-24 months.In a high-risk patient, CT at 6-12 months, then CT at 18-24 months.Nodule size greater than 8 mmIn a low-risk patient, consider CT at 3 months, PET/CT, or tissue sampling.In a high-risk patient, consider CT at 3 months, PET/CT, or tissue sampling.Multiple Solid Nodules:Nodule size less than 6 mmIn a low-risk patient, no routine follow-up.In a high-risk patient, optional CT at 12 months. Nodule size equals 6-8 mmIn a low-risk patient, CT at 3-6 months, then consider CT at 18-24 months.In a high-risk patient, CT at 3-6 months, then CT at 18-24 months.Nodule size greater than 8 mmIn a low-risk patient, CT at 3-6 months, then consider CT at 18-24 months.In a high-risk patient, CT at 3-6 months, then CT at 18-24 months.- Low risk patients include individuals with minimal or absent history of smoking and other known risk factors.- High risk patients include individuals with a history or smoking or known risk factors.Radiology 2017 http://pubs.rsna.org/doi/full/10.1148/[email or web address] D/ / Indra Casper MD / Indra Casper MD Interpreting Provider: Indra Casper MD
--- NOTE | 2017-11-24 15:36 | Discharge Summary ---
Date of Encounter: 11/24/17 Time of Encounter: 14:45 - Discharge Diagnosis (1) COPD exacerbation Priority: Primary Status: Acute Hospital course: Ms. Walls is a 67 year old female who came to emergency room complaining of increased dyspnea onset approximately November 21. She had cough productive of white phlegm. She has had headache. She was evaluated in emergency room and felt to have exacerbation of COPD. She was admitted to [facility] floor for ongoing care needs. Initial orders were written by the emergency room physician. I saw her on November 24 and performed a history physical and discharge. She was given Rocephin empirically in emergency room for COPD exacerbation. Chest CT was done to further evaluate. The CT showed groundglass opacity throughout the right upper lobe with mild precarinal adenopathy. Follow-up to resolution is recommended. I will let her PCP Dr. Velazquez order follow-up CT in a few weeks. She remained remained afebrile during hospitalization. When I saw her on November 24 she felt improved and stable for discharge home. She will be given antibiotic and probiotic for 5 days for the right upper lobe abnormality. She will use OTC Mucinex. I encouraged her to discuss with her PCP a recheck of oxygen level after a 6 minute walk to see if home oxygen is needed. I encouraged her to remain a nonsmoker. - Time Spent with Patient Total time spent providing and/or coordinating discharge services: - Discharge Medications Prescriptions: Doxycycline 100 mg PO BID #10 capsule Lactobacillus [Culturelle] 1 each PO BID #10 cap.sprink Home Medications: Aspirin Enteric Coated [Aspirin EC] 81 mg PO DAILY 02/18/15 [History] Cholecalciferol (Vitamin D3) [Vitamin D] 1,000 unit PO DAILY 02/18/15 [History] Hydrocodone/Acetaminophen [[place] 5-325 Tablet] 1 tab PO Q6H PRN #4 tab 02/18/15 [Rx] ALPRAZolam [Xanax 0.5 MG Tablet] 0.5 mg PO BID 06/02/17 [History] Albuterol Sulfate [Albuterol Inhaler] 1 - 2 puff IH QID PRN 06/23/17 [History] Multivitamin [One Daily Essential] 1 tab PO DAILY 06/23/17 [History] SUMAtriptan succinate [Imitrex] 50 mg PO Q2H PRN #7 tablet 07/01/17 [Rx] Doxycycline 100 mg PO BID #10 capsule 11/24/17 [Rx] Lactobacillus [Culturelle] 1 each PO BID #10 cap.sprink 11/24/17 [Rx] Allergies/Adverse Reactions: 3 Allergy/AdvReac Type Severity Reaction Status Date / Time acetaminophen [From Percocet] AdvReac Nausea Verified 06/23/17 17:56 Oxycodone [From Percocet] AdvReac Nausea Verified 06/23/17 17:56 Date of admission: 11/23/17 20:36 Primary care physician: Ángel Velazquez DO - Constitutional Vitals: Temp Pulse Resp BP Pulse Ox 98.2 F 64 16 116/57 96 11/24/17 10:51 11/24/17 12:47 11/24/17 10:51 11/24/17 12:47 11/24/17 10:51 - Patient Status Disposition: Home, Self-Care Condition: Fair Overall status at discharge: patient is progressing back to baseline - Discharge Instructions Follow Up With: Ángel Velazquez DO [Primary Care Provider] - 1 week - Diet and Activity Activity: resume usual activities as tolerated Diet: advance to your usual diet
[2017-11-24] MEDS ORDERED: cefTRIAXone 2,000 MG in Water for inj. (sterile) 20 ML 20 ML IVP SCH (19:00)
--- NOTE | 2017-11-27 16:44 | Electrocardiograph Report ---
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
== END 2017-11-24 16:22 | disposition home or self-care (01) ==
LOC: EMEROOPIK 17:43 → INPPIK 17:43
PROVIDERS: ADMIT Internal Medicine; ATTEND Internal Medicine

== ENCOUNTER 2019-07-16 22:48 | Inpatient (IN) ==
[2019-07-16] MEDS ORDERED: Ipratropium/Albuterol Neb 3 ML IH ONE (22:53)
[2019-07-16] MEDS ORDERED: methylPREDNISolone 125 MG/2 ML VIAL IVP ONE (22:53)
[2019-07-16] MEDS ORDERED: 0.9 % Sodium Chloride 1,000 ML IV ONE (22:53)
[2019-07-16] MEDS ORDERED: Ondansetron 4 MG/2 ML VIAL IVP ONE (22:54)
[2019-07-16] MEDS ORDERED: Morphine Sulfate 2 MG/ML SYRINGE IVP ONE (22:54)
[2019-07-16 23:20] LABS: ABG Base Excess -3 mEq/L (-2 to 3); ABG HCO3 26 mEq/L (21-27); ABG Oxygen Saturation 96 % (95-98); ABG PCO2 58 mmHg (35-45); ABG PH 7.25 pH Units (7.32-7.45); ABG PO2 94 mmHg (85-104); ABG TCO2 27 mEq/L (20-26)
[2019-07-17] MEDS ORDERED: *HR* Promethazine 25 MG/ML VIAL IVP ONE (00:47)
[2019-07-17 00:49] LABS: Basophils # 0.1 K/mcL (0.0-0.2); Basophils % 0.7 %; Eosinophils # 0.3 K/mcL (0.0-0.6); Eosinophils % 2.4 %; Hematocrit 41.7 % (35.3-44.9); Hemoglobin 14.3 g/dL (11.5-15.4); Immature Granulocytes % 0.4 % (0-4); Lymphocytes # 1.2 K/mcL (0.6-4.6); Mean Corpuscular HGB Conc 34.3 g/dL (31.6-35.5); Mean Corpuscular Hemoglobin 31.4 pg (28.0-33.3); Mean Corpuscular Volume 91.4 fL (83.0-100.0); Mean Platelet Volume 12.1 fL (9.4-12.4); Monocytes # 0.7 K/mcL (0.0-1.3); Monocytes % 5.3 %; Platelet Count 279 K/mcL (140-400); Red Blood Count 4.56 M/mcL (3.82-4.97); Red Cell Distribution Width 12.4 % (11.5-14.5); Segmented Neutrophils % 82.2 %; White Blood Count 13.4 K/mcL (4.3-11.1)
[2019-07-17 01:58] LABS: Troponin I < 0.03 ng/mL (< 0.04)
[2019-07-17 02:16] LABS: Alanine Aminotransferase 29 Units/L (7-52); Albumin 5.1 g/dL (3.5-5.7); Albumin/Globulin Ratio 1.5 (1.1-2.2); Alkaline Phosphatase 69 Units/L (34-104); Aspartate Amino Transferase 85 Units/L (13-39); BUN/Creatinine Ratio 18 (6-26); Bilirubin,Total 0.4 mg/dL (0.3-1.0); Blood Urea Nitrogen 12 mg/dL (8-23); Calcium 9.8 mg/dL (8.6-10.3); Carbon Dioxide 28 mEq/L (23-29); Chloride 95 mEq/L (98-107); Globulin 3.4 g/dL (2.4-3.5); Glucose 127 mg/dL (70-105); Magnesium 2.4 mg/dL (1.6-2.6); Osmolality,Calculated 277 (280-300); Potassium 7.8 mEq/L (3.5-5.1); Total Protein 8.5 g/dL (6.4-8.9); eGFR For African Americans > 60 (> 60); eGFR For Non-African Americans > 60 (> 60)
[2019-07-17 02:34] LABS: Sodium 133 mEq/L (136-145)
[2019-07-17] MEDS ORDERED: 0.9 % Sodium Chloride 1,000 ML IV ONE (02:49)
[2019-07-17] MEDS ORDERED: Morphine Sulfate 2 MG/ML SYRINGE IVP ONE (03:37)
[2019-07-17] MEDS ORDERED: Naloxone 0.4 MG/ML INJ IVP PRN (03:59)
[2019-07-17] MEDS: *HR* HYDROcodone/Acet 5/325 mg TABLET PO PRN ×2 (06:30→14:55)
[2019-07-17] MEDS: *HR* Promethazine 25 MG/ML VIAL IVP PRN ×2 (06:30→20:37)
[2019-07-17 06:51] LABS: INR 1.1; Prothrombin Time 12.8 Seconds (9.4-12.1)
[2019-07-17 07:06] LABS: BUN/Creatinine Ratio 18 (6-26); Blood Urea Nitrogen 10 mg/dL (8-23); Calcium 9.1 mg/dL (8.6-10.3); Carbon Dioxide 27 mEq/L (23-29); Chloride 104 mEq/L (98-107); Glucose 164 mg/dL (70-105); Osmolality,Calculated 291 (280-300); Potassium 4.2 mEq/L (3.5-5.1); Sodium 139 mEq/L (136-145); eGFR For African Americans > 60 (> 60); eGFR For Non-African Americans > 60 (> 60)
[2019-07-17] MEDS: Lactobacillus 1 EACH CAP.SPRINK PO SCH ×2 (08:29→20:36)
[2019-07-17] MEDS: ALPRAZolam 0.5 MG TABLET PO SCH ×2 (08:29→20:36)
[2019-07-17] MEDS: Aspirin Enteric Coated 81 MG Tablet PO SCH (08:29)
[2019-07-17] MEDS: Multivit/Ca/Min/Fe/FA 1 TAB TABLET PO SCH (08:29)
[2019-07-17] MEDS: Cholecalciferol (D-3) 1,000 UNIT (25MCG) TABLET PO SCH (08:29)
[2019-07-17] MEDS: MethylPREDNISolone 40 MG/ML VIAL IVP SCH ×3 (13:33→23:59)
[2019-07-17] MEDS ORDERED: levoFLOXacin 500 MG/100 ML 500 MG/100 ML BAG IVPB SCH (14:00)
[2019-07-17] MEDS: 0.9 % Sodium Chloride 1,000 ML IV SCH (14:30)
[2019-07-17 15:10] LABS: Bilirubin,Urine Negative (Negative); Blood,Urine Negative (Negative); Clarity,Urine Cloudy (Clear); Color,Urine Yellow (Yellow); Glucose,Urine (UA) 250 mg/dL (Normal); Ketones,Urine Trace mg/dL (Negative); Leukocyte Esterase,Urine Small (Negative); Nitrite,Urine Positive (Negative); Protein,Urine Negative (Neg-Trace); Specific Gravity,Urine 1.025 (1.010-1.025); Urobilinogen,Urine Normal (Normal)
[2019-07-17 15:18] LABS: Bacteria,Urine Many per hpf (None-Few); Squamous Epithelial Cell,Urine Few per lpf (None-Few); WBC,Urine TNTC per hpf (0-3)
[2019-07-17 15:19] LABS: Mucus,Urine Moderate per lpf (Few)
[2019-07-17 20:58] LABS: Adenovirus Not Detected (Not Detect); Bordetella Pertussis Not Detected (Not Detect); Chlamydophila pneumoniae Not Detected (Not Detect); Coronavirus 229E Not Detected (Not Detect); Coronavirus HKU1 Not Detected (Not Detect); Coronavirus NL63 Not Detected (Not Detect); Coronavirus OC43 Not Detected (Not Detect); Human Metapneumovirus Not Detected (Not Detect); Human Rhinovirus/Enterovirus Not Detected (Not Detect); Influenza A Subtype 2009 H1 Not Detected (Not Detect); Influenza B Not Detected (Not Detect); Mycoplasma pneumoniae Not Detected (Not Detect); Parainfluenza Virus 1 Not Detected (Not Detect); Parainfluenza Virus 2 Not Detected (Not Detect); Parainfluenza Virus 3 Not Detected (Not Detect); Parainfluenza Virus 4 Not Detected (Not Detect); Respiratory Syncytial Virus Not Detected (Not Detect)
[2019-07-17] MEDS: STIOLTO RESPIMAT IH SCH (21:02)
[2019-07-17] MEDS: Ipratropium/Albuterol Neb 3 ML IH PRN (21:26)
[2019-07-18] MEDS: *HR* HYDROcodone/Acet 5/325 mg TABLET PO PRN ×2 (00:59→07:44)
[2019-07-18] MEDS: *HR* Promethazine 25 MG/ML VIAL IVP PRN ×2 (03:10→09:26)
[2019-07-18] MEDS: 0.9 % Sodium Chloride 1,000 ML IV SCH (03:12)
[2019-07-18] MEDS: MethylPREDNISolone 40 MG/ML VIAL IVP SCH (06:22)
[2019-07-18] MEDS: ALPRAZolam 0.5 MG TABLET PO SCH ×3 (07:44→21:12)
[2019-07-18] MEDS: *HR* Enoxaparin 40 MG/0.4 ML SYRINGE SQ SCH (07:44)
[2019-07-18] MEDS: Cholecalciferol (D-3) 1,000 UNIT (25MCG) TABLET PO SCH (07:44)
[2019-07-18] MEDS: Aspirin Enteric Coated 81 MG Tablet PO SCH (07:44)
[2019-07-18] MEDS: Multivit/Ca/Min/Fe/FA 1 TAB TABLET PO SCH (07:44)
[2019-07-18] MEDS: Lactobacillus 1 EACH CAP.SPRINK PO SCH ×2 (07:44→21:11)
[2019-07-18 08:32] LABS: Hematocrit 34.5 % (35.3-44.9); Hemoglobin 10.9 g/dL (11.5-15.4); Mean Corpuscular HGB Conc 31.6 g/dL (31.6-35.5); Mean Corpuscular Hemoglobin 30.4 pg (28.0-33.3); Mean Corpuscular Volume 96.4 fL (83.0-100.0); Mean Platelet Volume 11.3 fL (9.4-12.4); Platelet Count 222 K/mcL (140-400); Red Blood Count 3.58 M/mcL (3.82-4.97); Red Cell Distribution Width 12.5 % (11.5-14.5)
[2019-07-18 08:46] LABS: White Blood Count 14.9 K/mcL (4.3-11.1)
[2019-07-18 08:52] LABS: BUN/Creatinine Ratio 15 (6-26); Blood Urea Nitrogen 11 mg/dL (8-23); Calcium 8.8 mg/dL (8.6-10.3); Carbon Dioxide 22 mEq/L (23-29); Chloride 104 mEq/L (98-107); Glucose 156 mg/dL (70-105); Osmolality,Calculated 287 (280-300); Potassium 4.4 mEq/L (3.5-5.1); Sodium 137 mEq/L (136-145); eGFR For African Americans > 60 (> 60); eGFR For Non-African Americans > 60 (> 60)
[2019-07-18] MEDS ORDERED: Ondansetron 4 MG/2 ML VIAL IVP PRN (09:10)
[2019-07-18] MEDS ORDERED: Ondansetron ODT 4 MG TAB.RAPDIS SL PRN (12:11)
[2019-07-18] MEDS: levoFLOXacin 500 MG TABLET PO SCH (12:58)
[2019-07-18] MEDS: predniSONE 20 MG TABLET PO SCH (16:12)
[2019-07-18] MEDS ORDERED: MethylPREDNISolone 40 MG/ML VIAL IVP SCH (18:00)
[2019-07-18] MEDS: Ipratropium/Albuterol Neb 3 ML IH PRN (18:45)
[2019-07-19] MEDS: *HR* HYDROcodone/Acet 5/325 mg TABLET PO PRN ×2 (02:33→20:14)
[2019-07-19 08:54] LABS: Hematocrit 33.2 % (35.3-44.9); Hemoglobin 11.2 g/dL (11.5-15.4); Mean Corpuscular HGB Conc 33.7 g/dL (31.6-35.5); Mean Corpuscular Hemoglobin 30.9 pg (28.0-33.3); Mean Corpuscular Volume 91.5 fL (83.0-100.0); Mean Platelet Volume 11.4 fL (9.4-12.4); Platelet Count 206 K/mcL (140-400); Red Blood Count 3.63 M/mcL (3.82-4.97); Red Cell Distribution Width 12.5 % (11.5-14.5); White Blood Count 13.4 K/mcL (4.3-11.1)
[2019-07-19] MEDS: Lactobacillus 1 EACH CAP.SPRINK PO SCH ×2 (09:07→20:13)
[2019-07-19] MEDS: Multivit/Ca/Min/Fe/FA 1 TAB TABLET PO SCH (09:07)
[2019-07-19] MEDS: Aspirin Enteric Coated 81 MG Tablet PO SCH (09:07)
[2019-07-19] MEDS: predniSONE 20 MG TABLET PO SCH ×2 (09:08→15:23)
[2019-07-19] MEDS: levoFLOXacin 500 MG TABLET PO SCH (09:08)
[2019-07-19] MEDS: ALPRAZolam 0.5 MG TABLET PO SCH ×3 (09:09→20:14)
[2019-07-19] MEDS: *HR* Enoxaparin 40 MG/0.4 ML SYRINGE SQ SCH (09:09)
[2019-07-19 09:10] LABS: BUN/Creatinine Ratio 18 (6-26); Blood Urea Nitrogen 14 mg/dL (8-23); Calcium 9.2 mg/dL (8.6-10.3); Carbon Dioxide 31 mEq/L (23-29); Chloride 102 mEq/L (98-107); Glucose 129 mg/dL (70-105); Osmolality,Calculated 292 (280-300); Potassium 4.2 mEq/L (3.5-5.1); Sodium 140 mEq/L (136-145); eGFR For African Americans > 60 (> 60); eGFR For Non-African Americans > 60 (> 60)
[2019-07-19] MEDS: Cholecalciferol (D-3) 1,000 UNIT (25MCG) TABLET PO SCH (09:11)
[2019-07-19] MEDS: STIOLTO RESPIMAT IH SCH ×2 (19:21→20:15)
[2019-07-20] MEDS: Melatonin 3 MG TABLET PO PRN ×3 (01:55→22:18)
[2019-07-20] MEDS: *HR* HYDROcodone/Acet 5/325 mg TABLET PO PRN ×2 (06:34→19:41)
[2019-07-20 07:35] LABS: Hematocrit 34.6 % (35.3-44.9); Mean Corpuscular HGB Conc 34.7 g/dL (31.6-35.5); Mean Corpuscular Hemoglobin 31.3 pg (28.0-33.3); Mean Corpuscular Volume 90.1 fL (83.0-100.0); Mean Platelet Volume 11.6 fL (9.4-12.4); Platelet Count 202 K/mcL (140-400); Red Blood Count 3.84 M/mcL (3.82-4.97); Red Cell Distribution Width 12.2 % (11.5-14.5); White Blood Count 12.4 K/mcL (4.3-11.1)
[2019-07-20 07:54] LABS: BUN/Creatinine Ratio 22 (6-26); Blood Urea Nitrogen 14 mg/dL (8-23); Calcium 9.3 mg/dL (8.6-10.3); Carbon Dioxide 26 mEq/L (23-29); Chloride 101 mEq/L (98-107); Glucose 81 mg/dL (70-105); Osmolality,Calculated 290 (280-300); Potassium 4.3 mEq/L (3.5-5.1); Sodium 140 mEq/L (136-145); eGFR For African Americans > 60 (> 60); eGFR For Non-African Americans > 60 (> 60)
[2019-07-20] MEDS: Lactobacillus 1 EACH CAP.SPRINK PO SCH ×2 (09:46→19:42)
[2019-07-20] MEDS: Cholecalciferol (D-3) 1,000 UNIT (25MCG) TABLET PO SCH (09:47)
[2019-07-20] MEDS: Multivit/Ca/Min/Fe/FA 1 TAB TABLET PO SCH (09:47)
[2019-07-20] MEDS: ALPRAZolam 0.5 MG TABLET PO SCH ×4 (09:47→22:18)
[2019-07-20] MEDS: predniSONE 20 MG TABLET PO SCH ×2 (09:47→15:21)
[2019-07-20] MEDS: *HR* Enoxaparin 40 MG/0.4 ML SYRINGE SQ SCH (09:47)
[2019-07-20] MEDS: Aspirin Enteric Coated 81 MG Tablet PO SCH (09:47)
[2019-07-20] MEDS: levoFLOXacin 500 MG TABLET PO SCH (13:02)
[2019-07-20] MEDS: Nystatin SUSP 5 ML UD.LIQ PO PRN ×2 (13:02→19:42)
[2019-07-20] MEDS: STIOLTO RESPIMAT IH SCH (22:18)
[2019-07-20] MEDS ORDERED: Melatonin 3 MG TABLET PO SCH (23:37)
[2019-07-21 06:52] VITALS: BP 126/64
[2019-07-21 08:04] LABS: Hematocrit 40.4 % (35.3-44.9); Hemoglobin 13.5 g/dL (11.5-15.4); Mean Corpuscular HGB Conc 33.4 g/dL (31.6-35.5); Mean Corpuscular Volume 92.7 fL (83.0-100.0); Mean Platelet Volume 10.9 fL (9.4-12.4); Platelet Count 229 K/mcL (140-400); Red Blood Count 4.36 M/mcL (3.82-4.97); Red Cell Distribution Width 12.1 % (11.5-14.5); White Blood Count 11.1 K/mcL (4.3-11.1)
[2019-07-21] MEDS: predniSONE 20 MG TABLET PO SCH (08:11)
[2019-07-21] MEDS: Cholecalciferol (D-3) 1,000 UNIT (25MCG) TABLET PO SCH (08:11)
[2019-07-21] MEDS: levoFLOXacin 500 MG TABLET PO SCH (08:11)
[2019-07-21] MEDS: Lactobacillus 1 EACH CAP.SPRINK PO SCH (08:11)
[2019-07-21] MEDS: Nystatin SUSP 5 ML UD.LIQ PO PRN (08:11)
[2019-07-21] MEDS: ALPRAZolam 0.5 MG TABLET PO SCH (08:11)
[2019-07-21] MEDS: *HR* HYDROcodone/Acet 5/325 mg TABLET PO PRN (08:11)
[2019-07-21] MEDS: *HR* Enoxaparin 40 MG/0.4 ML SYRINGE SQ SCH (08:12)
[2019-07-21] MEDS: Multivit/Ca/Min/Fe/FA 1 TAB TABLET PO SCH (08:12)
[2019-07-21] MEDS: Aspirin Enteric Coated 81 MG Tablet PO SCH (08:12)
[2019-07-21 08:18] LABS: BUN/Creatinine Ratio 20 (6-26); Blood Urea Nitrogen 15 mg/dL (8-23); Calcium 9.5 mg/dL (8.6-10.3); Carbon Dioxide 33 mEq/L (23-29); Chloride 99 mEq/L (98-107); Glucose 86 mg/dL (70-105); Osmolality,Calculated 290 (280-300); Potassium 3.4 mEq/L (3.5-5.1); Sodium 140 mEq/L (136-145); eGFR For African Americans > 60 (> 60); eGFR For Non-African Americans > 60 (> 60)
[2019-07-21] MEDS ORDERED: levoFLOXacin 500 MG TABLET PO SCH (09:00)
== END 2019-07-21 14:06 | disposition home or self-care (01) | DRG 190 ==
LOC: INPPIK 22:48 → EMEROOPIK 22:48 → SUATTDRO 07-17 03:47 → INPPIK 07-17 04:50
PROVIDERS: ADMIT Internal Medicine; ATTEND Family Medicine